=== PATIENT | male | born 1955 | race Two or more races ===

== ENCOUNTER 2021-01-26 19:31 | Inpatient (IN) | payer OTHER, MEDICARE ==
[~2021-01-26] VITALS: Ht 170.2 cm; Wt 52.2 kg
[2021-01-26] MEDS ORDERED: IPRATROPIUM BROM 0.5 MG/2.5ML INH SOL NEB ONE (20:45)
[2021-01-26] MEDS ORDERED: ALBUTEROL SULF 2.5 MG/0.5ML(0.5%) NEB SOLN NEB ONE (20:45)
[2021-01-26 21:26] LABS: Basophils # (auto) 0 10 ^3/uL (0-0.2); Basophils % (auto) 0.7 % (0.0-2.0); Eosinophils # (auto) 0 10 ^3/uL (0-0.8); Eosinophils % (auto) 0.2 % (0.0-7.0); Hematocrit 44.7 % (41.0-53.0); Hemoglobin 14.1 g/dL (13.5-17.5); Lymphocytes # (auto) 1.1 10 ^3/uL (0.4-5.4); Mean Corpuscular Hemoglobin 30.7 pg (28.0-32.0); Mean Corpuscular Hgb Conc. 31.6 g/dL (32.0-36.0); Mean Corpuscular Volume 97.2 fL (80.0-100.0); Monocytes # (auto) 0.4 10 ^3/uL (0-1.3); Monocytes % (auto) 6.9 % (0.0-12.0); Neutrophils # (auto) 3.7 10 ^3/uL (1.6-8.6); Neutrophils % (auto) 71.2 % (37.0-80.0); Nucleated Red Blood Cells % 0.1 %; Platelet Count (auto) 294 10^3/uL (140-450); Red Blood Cells 4.59 10^6/uL (4.5-5.90); White Blood Cell 5.1 10^3/uL (4.4-10.8)
[2021-01-26 21:28] LABS: Urine Bacteria NONE SEEN /hpf (None Seen); Urine Blood Negative /uL (Negative); Urine Specific Gravity 1.011 (1.001-1.035); Urine WBC <1 /hpf (0 - 3)
[2021-01-26] MEDS ORDERED: IBUPROFEN 800 MG TAB PO ONE (21:30)
[2021-01-26 21:34] LABS: Red Cell Distribution Width 23.1 % (11.8-14.3)
[2021-01-26 21:42] LABS: INR 0.89 (0.9-1.15); Partial Thromboplastin Time 24.7 sec (23.0-31.2)
[2021-01-26 21:43] LABS: Albumin 3.5 g/dL (3.4-5.0); Anion Gap 18 (5-15); Blood Urea Nitrogen 17 mg/dL (7-18); Calcium 8.5 mg/dL (8.5-10.1); Carbon Dioxide 13 mmol/L (21-32); Chloride 110 mmol/L (98-107); Glucose 137 mg/dL (74-106); Magnesium 2.5 mg/dL (1.6-2.6); Potassium 3.5 mmol/L (3.5-5.1); Sodium 141 mmol/L (136-145)
[2021-01-26 21:50] LABS: Alanine Aminotransferase 17 U/L (16-61); Alkaline Phosphatase 109 U/L (45-117); Aspartate Aminotransferase 39 U/L (15-37); BUN/Creatinine Ratio 16.7; Bilirubin, Total 0.3 mg/dL (0.2-1.0); GFR African American 95 mL/min; GFR Non-African American 78 mL/min; Total Protein 7.3 g/dL (6.4-8.2)
[2021-01-26] MEDS ORDERED: IOHEXOL 350 MG/ML 100ML IJ ONE (22:53)
[2021-01-27] VITALS (7 sets, daily range): BP systolic 111–159; BP diastolic 46–93
[2021-01-27] MEDS ORDERED: HEPARIN SODIUM (PORCINE) 5000 UNITS/ML 1ML VIAL IV ONE (00:30)
[2021-01-27] MEDS ORDERED: HEPARIN DRIP/D5W 100UNITS/ML 250 ML IV SCH (00:30)
[2021-01-27] MEDS ORDERED: IPRATROPIUM BROM 0.5 MG/2.5ML INH SOL NEB PRN (02:30)
[2021-01-27] MEDS ORDERED: ALBUTEROL SULF 2.5 MG/0.5ML(0.5%) NEB SOLN NEB PRN (02:30)
[2021-01-27] MEDS ORDERED: MORPHINE SULF INJ 2 MG/ML SYRINGE 1ML IV PRN (02:30)
[2021-01-27] MEDS ORDERED: ACETAMINOPHEN 325 MG TAB PO PRN (02:30)
[2021-01-27] MEDS ORDERED: NITROGLYCERIN 0.4 MG SL TAB SL PRN (02:30)
[2021-01-27] MEDS ORDERED: TEMAZEPAM 15 MG CAP PO ONE ×2 (03:00→21:15)
[2021-01-27 04:11] LABS: Basophils # (auto) 0 10 ^3/uL (0-0.2); Basophils % (auto) 0.9 % (0.0-2.0); Eosinophils # (auto) 0.1 10 ^3/uL (0-0.8); Eosinophils % (auto) 2.3 % (0.0-7.0); Hematocrit 34.9 % (41.0-53.0); Hemoglobin 11.5 g/dL (13.5-17.5); Lymphocytes # (auto) 1.2 10 ^3/uL (0.4-5.4); Lymphocytes % (auto) 29.4 % (10.0-50.0); Mean Corpuscular Hemoglobin 31.5 pg (28.0-32.0); Mean Corpuscular Hgb Conc. 32.9 g/dL (32.0-36.0); Mean Corpuscular Volume 95.8 fL (80.0-100.0); Monocytes # (auto) 0.5 10 ^3/uL (0-1.3); Monocytes % (auto) 12.2 % (0.0-12.0); Neutrophils # (auto) 2.3 10 ^3/uL (1.6-8.6); Neutrophils % (auto) 55.2 % (37.0-80.0); Nucleated Red Blood Cells % 0.1 %; Platelet Count (auto) 204 10^3/uL (140-450); Red Blood Cells 3.64 10^6/uL (4.5-5.90); White Blood Cell 4.2 10^3/uL (4.4-10.8)
[2021-01-27 04:25] LABS: Red Cell Distribution Width 22.2 % (11.8-14.3)
[2021-01-27 04:33] LABS: BUN/Creatinine Ratio 17.2; Potassium 3.9 mmol/L (3.5-5.1)
[2021-01-27 04:34] LABS: Calcium 7.8 mg/dL (8.5-10.1)
[2021-01-27 04:36] LABS: Bilirubin, Total 0.8 mg/dL (0.2-1.0); Total Protein 5.8 g/dL (6.4-8.2)
[2021-01-27 08:37] LABS: INR 1.15 (0.9-1.15)
[2021-01-27 08:39] LABS: Partial Thromboplastin Time > 139.0 sec (23.0-31.2)
[2021-01-27] MEDS: MORPHINE SULFATE 4 MG/ML SYR/VIAL IV PRN ×4 (09:29→22:02)
[2021-01-27] MEDS: ONDANSETRON HCL 4 MG/2 ML VIAL IV PRN ×3 (09:30→18:05)
[2021-01-27] MEDS: FAMOTIDINE (10MG/ML) 2ML VL IV SCH ×2 (09:30→22:01)
[2021-01-27] MEDS: HEPARIN DRIP/D5W 100UNITS/ML 250 ML IV SCH ×2 (10:04→17:29)
[2021-01-27 17:20] LABS: INR 1.02 (0.9-1.15)
[2021-01-27 17:23] LABS: Partial Thromboplastin Time 76.5 sec (23.0-31.2)
[2021-01-28 00:12] LABS: INR 1.01 (0.9-1.15); Partial Thromboplastin Time 51.6 sec (23.0-31.2)
[2021-01-28] MEDS: MORPHINE SULFATE 4 MG/ML SYR/VIAL IV PRN ×5 (02:29→22:49)
[2021-01-28 05:11] VITALS: BP 127/90
[2021-01-28] MEDS: HEPARIN DRIP/D5W 100UNITS/ML 250 ML IV SCH (05:55)
[2021-01-28 06:45] LABS: Basophils # (auto) 0 10 ^3/uL (0-0.2); Basophils % (auto) 1.2 % (0.0-2.0); Eosinophils # (auto) 0.3 10 ^3/uL (0-0.8); Eosinophils % (auto) 8.1 % (0.0-7.0); Hematocrit 33.4 % (41.0-53.0); Hemoglobin 11.3 g/dL (13.5-17.5); Lymphocytes # (auto) 1.4 10 ^3/uL (0.4-5.4); Lymphocytes % (auto) 35.2 % (10.0-50.0); Mean Corpuscular Hemoglobin 31.8 pg (28.0-32.0); Mean Corpuscular Hgb Conc. 33.9 g/dL (32.0-36.0); Mean Corpuscular Volume 93.9 fL (80.0-100.0); Monocytes # (auto) 0.4 10 ^3/uL (0-1.3); Monocytes % (auto) 11.3 % (0.0-12.0); Neutrophils # (auto) 1.7 10 ^3/uL (1.6-8.6); Neutrophils % (auto) 44.2 % (37.0-80.0); Nucleated Red Blood Cells % 0.2 %; Platelet Count (auto) 183 10^3/uL (140-450); Red Blood Cells 3.56 10^6/uL (4.5-5.90); Red Cell Distribution Width 22.1 % (11.8-14.3); White Blood Cell 3.9 10^3/uL (4.4-10.8)
[2021-01-28 06:56] LABS: INR 0.97 (0.9-1.15); Partial Thromboplastin Time 48.5 sec (23.0-31.2)
[2021-01-28 07:04] LABS: Potassium 3.5 mmol/L (3.5-5.1)
[2021-01-28 07:13] LABS: Albumin 2.6 g/dL (3.4-5.0); BUN/Creatinine Ratio 15.4; Bilirubin, Total 0.6 mg/dL (0.2-1.0); Calcium 7.7 mg/dL (8.5-10.1); Magnesium 2.1 mg/dL (1.6-2.6); Phosphorus 2.1 mg/dL (2.5-4.90); Total Protein 5.3 g/dL (6.4-8.2)
[2021-01-28 09:00] VITALS: BP 150/94
[2021-01-28] MEDS: FAMOTIDINE (10MG/ML) 2ML VL IV SCH ×2 (09:05→21:19)
[2021-01-28] MEDS ORDERED: SACU1TAB PO (09:21)
[2021-01-28] MEDS ORDERED: APIX2.5T PO (09:22)
[2021-01-28] MEDS ORDERED: ATOR-47 PO (09:25)
[2021-01-28] MEDS ORDERED: PANT40TA2 PO (09:26)
[2021-01-28] MEDS ORDERED: METO-289 PO (09:27)
[2021-01-28] MEDS ORDERED: FURO1TAB33 PO ×2 (09:28→09:47)
[2021-01-28] MEDS ORDERED: METO1TAB9 PO (09:39)
[2021-01-28] MEDS ORDERED: GABA300C10 PO (09:40)
[2021-01-28] MEDS ORDERED: SPIR25TA8 PO (09:40)
[2021-01-28] MEDS ORDERED: METH750T22 PO (09:42)
[2021-01-28] MEDS ORDERED: SACU1TAB7 PO (09:43)
[2021-01-28] MEDS ORDERED: HYDR50TA15 PO (09:48)
[2021-01-28] MEDS ORDERED: POTASSIUM PHOSPHATE 26.4 MEQ in SODIUM CHL 0.9% 100 ML IV ONE (12:15)
[2021-01-28 12:52] VITALS: BP 141/96
[2021-01-28] MEDS: POLYETHYLENE GLYCOL 17 GM PWDR PO PRN (13:55)
[2021-01-28 13:59] LABS: INR 0.99 (0.9-1.15); Partial Thromboplastin Time 60.7 sec (23.0-31.2)
[2021-01-28] MEDS: HYDROcodone-ACET 5/325MG TAB PO PRN ×2 (15:55→21:19)
[2021-01-28 17:00] VITALS: BP 152/96
[2021-01-28 20:41] LABS: INR 1.03 (0.9-1.15); Partial Thromboplastin Time 65.5 sec (23.0-31.2)
[2021-01-28 22:00] VITALS: BP 134/92
[2021-01-28] MEDS: TEMAZEPAM 15 MG CAP PO PRN (23:13)
[2021-01-29] MEDS: HYDROcodone-ACET 5/325MG TAB PO PRN ×3 (02:18→20:10)
[2021-01-29 02:41] LABS: INR 1.05 (0.9-1.15)
[2021-01-29] MEDS: MORPHINE SULFATE 4 MG/ML SYR/VIAL IV PRN ×5 (03:18→22:08)
[2021-01-29 05:00] VITALS: BP 139/75
[2021-01-29 06:07] LABS: Basophils # (auto) 0.1 10 ^3/uL (0-0.2); Basophils % (auto) 1.4 % (0.0-2.0); Eosinophils # (auto) 0.3 10 ^3/uL (0-0.8); Eosinophils % (auto) 8.6 % (0.0-7.0); Hematocrit 31.1 % (41.0-53.0); Hemoglobin 10.5 g/dL (13.5-17.5); Lymphocytes # (auto) 1.8 10 ^3/uL (0.4-5.4); Mean Corpuscular Hemoglobin 32.1 pg (28.0-32.0); Mean Corpuscular Hgb Conc. 33.7 g/dL (32.0-36.0); Mean Corpuscular Volume 95.2 fL (80.0-100.0); Monocytes # (auto) 0.6 10 ^3/uL (0-1.3); Monocytes % (auto) 14.4 % (0.0-12.0); Neutrophils # (auto) 1.2 10 ^3/uL (1.6-8.6); Neutrophils % (auto) 29.6 % (37.0-80.0); Nucleated Red Blood Cells % 0.2 %; Platelet Count (auto) 158 10^3/uL (140-450); Red Blood Cells 3.27 10^6/uL (4.5-5.90); Red Cell Distribution Width 21.6 % (11.8-14.3); White Blood Cell 3.9 10^3/uL (4.4-10.8)
[2021-01-29 06:34] LABS: Potassium 3.5 mmol/L (3.5-5.1)
[2021-01-29 06:43] LABS: BUN/Creatinine Ratio 11.1; Calcium 7.6 mg/dL (8.5-10.1)
[2021-01-29 08:00] VITALS: BP 120/81
[2021-01-29] MEDS: FAMOTIDINE (10MG/ML) 2ML VL IV SCH ×2 (08:00→21:16)
[2021-01-29 09:21] LABS: INR 1.05 (0.9-1.15)
[2021-01-29] MEDS ORDERED: IOHEXOL 300 MG/ML 100ML BOTTLE IJ ONE (09:29)
[2021-01-29] MEDS: POLYETHYLENE GLYCOL 17 GM PWDR PO PRN (12:26)
[2021-01-29 13:00] VITALS: BP 139/73
[2021-01-29] MEDS: HEPARIN DRIP/D5W 100UNITS/ML 250 ML IV SCH ×2 (13:42→16:01)
[2021-01-29 14:54] LABS: Partial Thromboplastin Time 31.9 sec (23.0-31.2)
[2021-01-29] MEDS ORDERED: HEPARIN 1,000 UNITS/ml 1ML VIAL ONE (15:27)
[2021-01-29] MEDS ORDERED: HEPARIN SODIUM (PORCINE) 5000 UNITS/ML 1ML VIAL IV ONE (15:30)
[2021-01-29 16:42] VITALS: BP 154/81
[2021-01-29] MEDS: ONDANSETRON HCL 4 MG/2 ML VIAL IV PRN (18:07)
[2021-01-29 20:39] VITALS: BP 154/89
[2021-01-29 22:00] VITALS: BP 133/89
[2021-01-29] MEDS ORDERED: ATORVASTATIN 20 MG TAB PO SCH (22:00)
[2021-01-29] MEDS ORDERED: ENTRESTO PO SCH (22:00)
[2021-01-29] MEDS: TEMAZEPAM 15 MG CAP PO PRN (22:08)
[2021-01-29 22:45] LABS: INR 1.05 (0.9-1.15)
[2021-01-29 22:47] LABS: Partial Thromboplastin Time > 139.0 sec (23.0-31.2)
[2021-01-30] MEDS: HYDROcodone-ACET 5/325MG TAB PO PRN ×2 (01:37→13:12)
[2021-01-30] MEDS: MORPHINE SULFATE 4 MG/ML SYR/VIAL IV PRN ×2 (03:40→08:31)
[2021-01-30 05:00] VITALS: BP 138/85
[2021-01-30 06:01] LABS: Basophils # (auto) 0.1 10 ^3/uL (0-0.2); Basophils % (auto) 1.7 % (0.0-2.0); Eosinophils # (auto) 0.3 10 ^3/uL (0-0.8); Eosinophils % (auto) 7.9 % (0.0-7.0); Hemoglobin 10.6 g/dL (13.5-17.5); Lymphocytes # (auto) 1.7 10 ^3/uL (0.4-5.4); Lymphocytes % (auto) 46.1 % (10.0-50.0); Mean Corpuscular Hemoglobin 32.5 pg (28.0-32.0); Mean Corpuscular Hgb Conc. 34.2 g/dL (32.0-36.0); Monocytes # (auto) 0.5 10 ^3/uL (0-1.3); Monocytes % (auto) 13.3 % (0.0-12.0); Neutrophils # (auto) 1.2 10 ^3/uL (1.6-8.6); Nucleated Red Blood Cells % 0.2 %; Platelet Count (auto) 160 10^3/uL (140-450); Red Blood Cells 3.27 10^6/uL (4.5-5.90); White Blood Cell 3.7 10^3/uL (4.4-10.8)
[2021-01-30 06:07] LABS: INR 1.02 (0.9-1.15); Partial Thromboplastin Time 61.5 sec (23.0-31.2)
[2021-01-30 06:10] LABS: Red Cell Distribution Width 21.4 % (11.8-14.3)
[2021-01-30 06:11] LABS: Potassium 3.8 mmol/L (3.5-5.1)
[2021-01-30 06:16] LABS: BUN/Creatinine Ratio 9.8; Calcium 7.8 mg/dL (8.5-10.1)
[2021-01-30] MEDS ORDERED: FUROSEMIDE 20 MG/2 ML VIAL IV ONE (07:00)
[2021-01-30 08:50] VITALS: BP 147/87
[2021-01-30] MEDS ORDERED: METOPROLOL SUCCINATE XL 50 MG TAB PO SCH (10:00)
[2021-01-30] MEDS ORDERED: SPIRONOLACTONE 25 MG TAB PO SCH (10:00)
[2021-01-30] MEDS: FAMOTIDINE (10MG/ML) 2ML VL IV SCH (10:03)
[2021-01-30] MEDS ORDERED: ENTRESTO PO SCH (10:08)
[2021-01-30 12:30] VITALS: BP 127/86
[2021-01-30 12:37] LABS: INR 1.01 (0.9-1.15); Partial Thromboplastin Time 48.1 sec (23.0-31.2)
[2021-01-30] MEDS: POLYETHYLENE GLYCOL 17 GM PWDR PO PRN (13:11)
[2021-01-30] MEDS: HEPARIN DRIP/D5W 100UNITS/ML 250 ML IV SCH (13:52)
[2021-01-30 16:07] VITALS: BP 127/86
[2021-01-30 17:00] VITALS: BP 125/85
== END 2021-01-30 17:45 | disposition home or self-care (01) | DRG 176 ==
LOC: EDBD 19:31 → ER 19:31 → TELE-WESTW 01-27 02:31 → ER 01-27 04:33
PROVIDERS: ADMIT Nurse Practitioner Family; ATTEND Internal Medicine
DX: I26.94 Multiple subsegmental thrombotic pulmonary emboli without acute cor pulmonale (principal); I77.4 Celiac artery compression syndrome; C25.9 Malignant neoplasm of pancreas, unspecified; D68.69 Other thrombophilia; I50.42 Chronic combined systolic (congestive) and diastolic (congestive) heart failure; Z20.822 Contact with and (suspected) exposure to COVID-19; G47.00 Insomnia, unspecified; I27.20 Pulmonary hypertension, unspecified; J43.9 Emphysema, unspecified; F17.210 Nicotine dependence, cigarettes, uncomplicated; N28.1 Cyst of kidney, acquired; I77.1 Stricture of artery; K76.0 Fatty (change of) liver, not elsewhere classified; Z79.899 Other long term (current) drug therapy; Z85.46 Personal history of malignant neoplasm of prostate; Z79.01 Long term (current) use of anticoagulants; Z90.79 Acquired absence of other genital organ(s)
CPT/HCPCS: 36415; 36600; 71275; 74177; 76700; 78306; 80048; 80053; 81001; 82805; 83036; 83735; 83880; 84100; 84154; 84443; 84484; 85025; 85379; 85610; 85730; 86301; 87426; 93005; 93306; 93970; 94640; 96365; 96375; 99291; G0378; J2405; J3490

== ENCOUNTER 2021-01-31 19:52 | Inpatient (IN) | payer OTHER, MEDICARE ==
[~2021-01-31] VITALS: Ht 172.7 cm; Wt 51.7 kg
[~2021-01-31 19:52] MED LIST: APIX2.5T PO; ATOR-47 PO; FURO1TAB33 PO; GABA300C10 PO; HYDR50TA15 PO; METH750T22 PO; METO1TAB9 PO; PANT40TA2 PO; SACU1TAB7 PO; SPIR25TA8 PO
[2021-01-31 20:28] LABS: Basophils # (auto) 0 10 ^3/uL (0-0.2); Basophils % (auto) 0.8 % (0.0-2.0); Eosinophils # (auto) 0.2 10 ^3/uL (0-0.8); Eosinophils % (auto) 3.8 % (0.0-7.0); Hematocrit 37.7 % (41.0-53.0); Hemoglobin 12.4 g/dL (13.5-17.5); Lymphocytes # (auto) 1.7 10 ^3/uL (0.4-5.4); Lymphocytes % (auto) 34.4 % (10.0-50.0); Mean Corpuscular Hemoglobin 31.5 pg (28.0-32.0); Mean Corpuscular Hgb Conc. 32.9 g/dL (32.0-36.0); Mean Corpuscular Volume 95.9 fL (80.0-100.0); Monocytes # (auto) 0.6 10 ^3/uL (0-1.3); Monocytes % (auto) 12.8 % (0.0-12.0); Neutrophils # (auto) 2.4 10 ^3/uL (1.6-8.6); Neutrophils % (auto) 48.2 % (37.0-80.0); Platelet Count (auto) 200 10^3/uL (140-450); Red Blood Cells 3.93 10^6/uL (4.5-5.90); White Blood Cell 5.1 10^3/uL (4.4-10.8)
[2021-01-31 20:31] LABS: Red Cell Distribution Width 21.5 % (11.8-14.3)
[2021-01-31 20:45] LABS: INR 1.02 (0.9-1.15); Partial Thromboplastin Time 27.1 sec (23.0-31.2)
[2021-01-31 21:02] LABS: Albumin 2.9 g/dL (3.4-5.0); Anion Gap 7 (5-15); Blood Urea Nitrogen 19 mg/dL (7-18); Carbon Dioxide 22 mmol/L (21-32); Chloride 111 mmol/L (98-107); GFR African American 85 mL/min; GFR Non-African American 70 mL/min; Glucose 65 mg/dL (74-106); Potassium 3.6 mmol/L (3.5-5.1); Sodium 140 mmol/L (136-145)
[2021-01-31 21:09] LABS: Alanine Aminotransferase 17 U/L (16-61); Alkaline Phosphatase 87 U/L (45-117); Aspartate Aminotransferase 22 U/L (15-37); Bilirubin, Total 0.2 mg/dL (0.2-1.0); Total Protein 6.4 g/dL (6.4-8.2)
[2021-02-01] MEDS ORDERED: MORPHINE SULF INJ 2 MG/ML SYRINGE 1ML IV PRN (04:00)
[2021-02-01] MEDS ORDERED: ACETAMINOPHEN 325 MG TAB PO PRN (04:00)
[2021-02-01] MEDS ORDERED: NITROGLYCERIN 0.4 MG SL TAB SL PRN (04:00)
[2021-02-01] MEDS ORDERED: DOCUSATE SOD 100 MG CAP PO PRN (04:00)
[2021-02-01] MEDS: SODIUM CHLOR 0.9% PF (SALINE LOCK) 10ML VIAL/SYR IV SCH ×3 (06:06→22:08)
[2021-02-01] MEDS: HYDROcodone-ACET 5/325MG TAB PO PRN ×2 (06:06→20:38)
[2021-02-01 06:13] VITALS: BP 128/81
[2021-02-01 07:30] LABS: Basophils # (auto) 0 10 ^3/uL (0-0.2); Basophils % (auto) 0.9 % (0.0-2.0); Eosinophils # (auto) 0.2 10 ^3/uL (0-0.8); Eosinophils % (auto) 5.4 % (0.0-7.0); Hematocrit 34.7 % (41.0-53.0); Hemoglobin 11.1 g/dL (13.5-17.5); Lymphocytes # (auto) 1.3 10 ^3/uL (0.4-5.4); Lymphocytes % (auto) 33.5 % (10.0-50.0); Mean Corpuscular Hemoglobin 30.9 pg (28.0-32.0); Mean Corpuscular Hgb Conc. 32.1 g/dL (32.0-36.0); Mean Corpuscular Volume 96.1 fL (80.0-100.0); Monocytes # (auto) 0.4 10 ^3/uL (0-1.3); Monocytes % (auto) 10.4 % (0.0-12.0); Neutrophils # (auto) 1.9 10 ^3/uL (1.6-8.6); Neutrophils % (auto) 49.8 % (37.0-80.0); Platelet Count (auto) 189 10^3/uL (140-450); Red Blood Cells 3.61 10^6/uL (4.5-5.90); White Blood Cell 3.9 10^3/uL (4.4-10.8)
[2021-02-01 07:31] LABS: Potassium 3.9 mmol/L (3.5-5.1)
[2021-02-01 07:32] LABS: Albumin 2.8 g/dL (3.4-5.0); Red Cell Distribution Width 21.4 % (11.8-14.3)
[2021-02-01 07:34] LABS: BUN/Creatinine Ratio 18.4
[2021-02-01 07:37] LABS: Bilirubin, Total 0.3 mg/dL (0.2-1.0)
[2021-02-01 09:00] VITALS: BP 126/85
[2021-02-01] MEDS ORDERED: APIXABAN 5 MG TAB PO ONE (09:45)
[2021-02-01] MEDS: ZINC SULFATE 220mg CAP or TAB PO SCH (10:29)
[2021-02-01] MEDS: SACUBITRIL-VALSARTAN 24mg/26mg TAB PO SCH ×2 (10:31→22:07)
[2021-02-01] MEDS: MULTIPLE VITAMIN TAB PO SCH (10:31)
[2021-02-01] MEDS: ASCORBIC ACID 500 MG TAB PO SCH ×2 (10:31→22:08)
[2021-02-01] MEDS: FAMOTIDINE (10MG/ML) 2ML VL IV SCH ×2 (10:32→22:08)
[2021-02-01] MEDS: MORPHINE SULF INJ 2 MG/ML SYRINGE 1ML IV PRN ×2 (10:34→17:17)
[2021-02-01 13:00] VITALS: BP 144/93
[2021-02-01] MEDS ORDERED: IOHEXOL 300 MG/ML 100ML BOTTLE IJ ONE (13:27)
[2021-02-01 17:00] VITALS: BP 150/63
[2021-02-01 20:00] VITALS: BP 143/94
[2021-02-01 22:00] VITALS: BP 143/94
[2021-02-01] MEDS: APIXABAN 5 MG TAB PO SCH (22:09)
[2021-02-02] MEDS: MORPHINE SULF INJ 2 MG/ML SYRINGE 1ML IV PRN ×4 (00:05→21:38)
[2021-02-02 05:00] VITALS: BP 122/81
[2021-02-02] MEDS: HYDROcodone-ACET 5/325MG TAB PO PRN ×2 (05:05→10:56)
[2021-02-02 05:32] LABS: Basophils # (auto) 0 10 ^3/uL (0-0.2); Basophils % (auto) 1.1 % (0.0-2.0); Eosinophils # (auto) 0.2 10 ^3/uL (0-0.8); Eosinophils % (auto) 4.4 % (0.0-7.0); Hematocrit 32.7 % (41.0-53.0); Hemoglobin 10.7 g/dL (13.5-17.5); Lymphocytes # (auto) 1.5 10 ^3/uL (0.4-5.4); Lymphocytes % (auto) 33.4 % (10.0-50.0); Mean Corpuscular Hemoglobin 31.3 pg (28.0-32.0); Mean Corpuscular Hgb Conc. 32.7 g/dL (32.0-36.0); Mean Corpuscular Volume 95.6 fL (80.0-100.0); Monocytes # (auto) 0.5 10 ^3/uL (0-1.3); Monocytes % (auto) 11.3 % (0.0-12.0); Neutrophils # (auto) 2.3 10 ^3/uL (1.6-8.6); Neutrophils % (auto) 49.8 % (37.0-80.0); Platelet Count (auto) 199 10^3/uL (140-450); Red Blood Cells 3.42 10^6/uL (4.5-5.90); White Blood Cell 4.6 10^3/uL (4.4-10.8)
[2021-02-02 05:33] LABS: Red Cell Distribution Width 20.9 % (11.8-14.3)
[2021-02-02 06:01] LABS: Potassium 3.4 mmol/L (3.5-5.1)
[2021-02-02] MEDS: SODIUM CHLOR 0.9% PF (SALINE LOCK) 10ML VIAL/SYR IV SCH ×3 (06:07→22:18)
[2021-02-02 06:14] LABS: Albumin 2.7 g/dL (3.4-5.0); BUN/Creatinine Ratio 22.5; Bilirubin, Total 0.3 mg/dL (0.2-1.0); Calcium 8.1 mg/dL (8.5-10.1); Total Protein 5.7 g/dL (6.4-8.2)
[2021-02-02 09:00] VITALS: BP 123/91
[2021-02-02] MEDS: MULTIPLE VITAMIN TAB PO SCH (10:21)
[2021-02-02] MEDS: ZINC SULFATE 220mg CAP or TAB PO SCH (10:22)
[2021-02-02] MEDS: ASCORBIC ACID 500 MG TAB PO SCH ×2 (10:22→22:19)
[2021-02-02] MEDS: FAMOTIDINE (10MG/ML) 2ML VL IV SCH ×2 (10:22→22:18)
[2021-02-02] MEDS: SACUBITRIL-VALSARTAN 24mg/26mg TAB PO SCH ×2 (10:22→22:18)
[2021-02-02] MEDS: APIXABAN 5 MG TAB PO SCH ×2 (10:22→22:18)
[2021-02-02 13:00] VITALS: BP 121/82
[2021-02-02] MEDS: ONDANSETRON HCL 4 MG/2 ML VIAL IV PRN ×2 (14:34→22:27)
[2021-02-02] MEDS ORDERED: POTASSIUM EFFERVESENT TAB 25 MEQ GT ONE (15:15)
[2021-02-02 17:00] VITALS: BP 138/94
[2021-02-02 22:00] VITALS: BP 135/92
[2021-02-03] MEDS ORDERED: TEMAZEPAM 15 MG CAP PO ONE (00:15)
[2021-02-03 05:00] VITALS: BP 106/65
[2021-02-03] MEDS: SODIUM CHLOR 0.9% PF (SALINE LOCK) 10ML VIAL/SYR IV SCH ×3 (05:52→22:17)
[2021-02-03 07:09] LABS: Basophils # (auto) 0.1 10 ^3/uL (0-0.2); Basophils % (auto) 1.2 % (0.0-2.0); Eosinophils # (auto) 0.3 10 ^3/uL (0-0.8); Eosinophils % (auto) 5.9 % (0.0-7.0); Hematocrit 33.2 % (41.0-53.0); Hemoglobin 10.7 g/dL (13.5-17.5); Lymphocytes # (auto) 1.5 10 ^3/uL (0.4-5.4); Lymphocytes % (auto) 35.2 % (10.0-50.0); Mean Corpuscular Hemoglobin 30.9 pg (28.0-32.0); Mean Corpuscular Hgb Conc. 32.2 g/dL (32.0-36.0); Mean Corpuscular Volume 96.1 fL (80.0-100.0); Monocytes # (auto) 0.4 10 ^3/uL (0-1.3); Monocytes % (auto) 10.4 % (0.0-12.0); Neutrophils % (auto) 47.3 % (37.0-80.0); Nucleated Red Blood Cells % 0.2 %; Platelet Count (auto) 225 10^3/uL (140-450); Red Blood Cells 3.46 10^6/uL (4.5-5.90); Red Cell Distribution Width 20.8 % (11.8-14.3); White Blood Cell 4.3 10^3/uL (4.4-10.8)
[2021-02-03 07:21] LABS: Potassium 4.4 mmol/L (3.5-5.1)
[2021-02-03 07:26] LABS: Calcium 8.5 mg/dL (8.5-10.1)
[2021-02-03 09:00] VITALS: BP 123/83
[2021-02-03] MEDS: ONDANSETRON HCL 4 MG/2 ML VIAL IV PRN ×2 (09:12→15:51)
[2021-02-03] MEDS: MORPHINE SULF INJ 2 MG/ML SYRINGE 1ML IV PRN ×3 (09:12→23:14)
[2021-02-03] MEDS: SACUBITRIL-VALSARTAN 24mg/26mg TAB PO SCH ×2 (09:13→22:17)
[2021-02-03] MEDS: ZINC SULFATE 220mg CAP or TAB PO SCH (09:13)
[2021-02-03] MEDS: APIXABAN 5 MG TAB PO SCH ×2 (09:13→22:17)
[2021-02-03] MEDS: ASCORBIC ACID 500 MG TAB PO SCH ×2 (09:13→22:17)
[2021-02-03] MEDS: FAMOTIDINE (10MG/ML) 2ML VL IV SCH ×2 (09:13→22:16)
[2021-02-03] MEDS: MULTIPLE VITAMIN TAB PO SCH (09:13)
[2021-02-03] MEDS ORDERED: TEMAZEPAM 15 MG CAP PO PRN (12:30)
[2021-02-03] MEDS: HYDROcodone-ACET 5/325MG TAB PO PRN ×2 (12:45→20:00)
[2021-02-03 13:00] VITALS: BP 136/91
[2021-02-03 16:45] VITALS: BP 123/85
[2021-02-03 22:00] VITALS: BP 130/88
[2021-02-04] MEDS: ONDANSETRON HCL 4 MG/2 ML VIAL IV PRN ×3 (01:19→13:30)
[2021-02-04 05:00] VITALS: BP 109/82
[2021-02-04] MEDS: SODIUM CHLOR 0.9% PF (SALINE LOCK) 10ML VIAL/SYR IV SCH ×2 (05:45→09:46)
[2021-02-04] MEDS: MORPHINE SULF INJ 2 MG/ML SYRINGE 1ML IV PRN ×2 (06:19→13:29)
[2021-02-04 07:42] LABS: Basophils # (auto) 0 10 ^3/uL (0-0.2); Basophils % (auto) 0.2 % (0.0-2.0); Eosinophils # (auto) 0.3 10 ^3/uL (0-0.8); Eosinophils % (auto) 6.3 % (0.0-7.0); Hemoglobin 11.8 g/dL (13.5-17.5); Lymphocytes # (auto) 1.8 10 ^3/uL (0.4-5.4); Lymphocytes % (auto) 36.4 % (10.0-50.0); Mean Corpuscular Hemoglobin 31.6 pg (28.0-32.0); Mean Corpuscular Hgb Conc. 32.7 g/dL (32.0-36.0); Mean Corpuscular Volume 96.5 fL (80.0-100.0); Monocytes # (auto) 0.5 10 ^3/uL (0-1.3); Monocytes % (auto) 9.8 % (0.0-12.0); Neutrophils # (auto) 2.3 10 ^3/uL (1.6-8.6); Neutrophils % (auto) 47.3 % (37.0-80.0); Nucleated Red Blood Cells % 0.1 %; Platelet Count (auto) 283 10^3/uL (140-450); Red Blood Cells 3.73 10^6/uL (4.5-5.90); Red Cell Distribution Width 20.8 % (11.8-14.3); White Blood Cell 4.8 10^3/uL (4.4-10.8)
[2021-02-04 07:59] LABS: Calcium 8.8 mg/dL (8.5-10.1); Potassium 4.8 mmol/L (3.5-5.1)
[2021-02-04 09:00] VITALS: BP 132/83
[2021-02-04] MEDS: ASCORBIC ACID 500 MG TAB PO SCH (09:45)
[2021-02-04] MEDS: MULTIPLE VITAMIN TAB PO SCH (09:45)
[2021-02-04] MEDS: ZINC SULFATE 220mg CAP or TAB PO SCH (09:45)
[2021-02-04] MEDS: FAMOTIDINE (10MG/ML) 2ML VL IV SCH (09:45)
[2021-02-04] MEDS: APIXABAN 5 MG TAB PO SCH (09:46)
[2021-02-04] MEDS: SACUBITRIL-VALSARTAN 24mg/26mg TAB PO SCH (09:46)
[2021-02-04] MEDS: HYDROcodone-ACET 5/325MG TAB PO PRN (09:51)
[2021-02-04 13:00] VITALS: BP 134/86
[2021-02-06] MEDS ORDERED: APIXABAN 5 MG TAB PO SCH (10:00)
== END 2021-02-04 14:37 | disposition home or self-care (01) | DRG 176 ==
LOC: ER 19:52 → TELE-WESTW 02-01 03:51
PROVIDERS: ADMIT Nurse Practitioner Family; ATTEND Internal Medicine
DX: I26.99 Other pulmonary embolism without acute cor pulmonale (principal); R04.2 Hemoptysis; I50.42 Chronic combined systolic (congestive) and diastolic (congestive) heart failure; I77.4 Celiac artery compression syndrome; E44.1 Mild protein-calorie malnutrition; D68.59 Other primary thrombophilia; Z20.822 Contact with and (suspected) exposure to COVID-19; I27.20 Pulmonary hypertension, unspecified; J43.9 Emphysema, unspecified; F17.210 Nicotine dependence, cigarettes, uncomplicated; Z79.01 Long term (current) use of anticoagulants; Z85.46 Personal history of malignant neoplasm of prostate; Z86.711 Personal history of pulmonary embolism; Z79.899 Other long term (current) drug therapy
CPT/HCPCS: 36415; 36600; 71045; 71260; 80048; 80053; 82805; 83735; 83880; 84484; 85025; 85379; 85610; 85730; 87081; 87426; 93005; G0378; J2405; J3490

== ENCOUNTER 2021-10-24 08:46 | Inpatient (IN) | payer MEDICARE ==
[~2021-10-24] VITALS: Ht 172.7 cm; Wt 67.9 kg
[2021-10-24] MEDS ORDERED: IOHEXOL 350 MG/ML 100ML IJ ONE (10:11)
[2021-10-24 10:12] LABS: Basophils # (auto) 0.1 10 ^3/uL (0-0.2); Basophils % (auto) 1.9 % (0.0-2.0); Hematocrit 50.7 % (41.0-53.0); Hemoglobin 16.8 g/dL (13.5-17.5); Lymphocytes % (auto) 26.1 % (10.0-50.0); Mean Corpuscular Hemoglobin 31.7 pg (28.0-32.0); Mean Corpuscular Hgb Conc. 33.2 g/dL (32.0-36.0); Mean Corpuscular Volume 95.4 fL (80.0-100.0); Nucleated Red Blood Cells % 0.3 %; Red Blood Cells 5.32 10^6/uL (4.5-5.90); Red Cell Distribution Width 15.5 % (11.8-14.3); White Blood Cell 3.9 10^3/uL (4.4-10.8)
[2021-10-24 10:13] LABS: Eosinophils % (auto) 14.5 % (0.0-7.0); Neutrophils % (auto) 47.9 % (37.0-80.0)
[2021-10-24 10:14] LABS: Eosinophils # (auto) 0.5 10 ^3/uL (0-0.8); Monocytes # (auto) 0.4 10 ^3/uL (0-1.3); Monocytes % (auto) 9.6 % (0.0-12.0); Neutrophils # (auto) 1.9 10 ^3/uL (1.6-8.6)
[2021-10-24 10:47] LABS: INR 1.24 (0.9-1.15)
[2021-10-24 11:10] LABS: Albumin 3.8 g/dL (3.4-5.0); BUN/Creatinine Ratio 12.3; Calcium 9.2 mg/dL (8.5-10.1); Potassium 4.4 mmol/L (3.5-5.1)
[2021-10-24 11:35] LABS: Bilirubin, Total 0.7 mg/dL (0.2-1.0); Total Protein 7.9 g/dL (6.4-8.2)
[2021-10-24] MEDS ORDERED: OXYCODONE W/ ACETAMINOPHEN 5/325MG TABLET PO ONE (12:45)
[2021-10-24] MEDS ORDERED: ACETAMINOPHEN 325 MG TAB PO PRN (14:30)
[2021-10-24] MEDS ORDERED: hydrALAZINE HCL 20 MG/ML VL IV PRN (14:30)
[2021-10-24] MEDS ORDERED: MORPHINE SULFATE INJECTION 2 MG/ML SYRG IV PRN (15:45)
[2021-10-24] MEDS ORDERED: NITROGLYCERIN 0.4 MG SL TAB SL PRN (15:45)
[2021-10-24 19:40] VITALS: BP 142/107
[2021-10-24] MEDS: HYDROcodone-ACET 5/325MG TAB PO PRN (19:45)
[2021-10-24] MEDS: CARVEDILOL 12.5 MG TAB PO SCH (21:12)
[2021-10-24] MEDS: APIXABAN 2.5 MG TAB PO SCH (21:12)
[2021-10-24] MEDS: SODIUM CHLOR 0.9% PF (SALINE LOCK) 10ML VIAL/SYR IV SCH (21:12)
[2021-10-24] MEDS: ATORVASTATIN 20 MG TAB PO SCH (21:13)
[2021-10-24 22:00] VITALS: BP 153/92
[2021-10-24] MEDS ORDERED: traMADol HCL 50 MG TAB PO ONE (23:30)
[2021-10-25 00:14] VITALS: BP 153/92
[2021-10-25] MEDS: ALBUTEROL SULF 2.5 MG/0.5ML(0.5%) NEB SOLN NEB PRN ×2 (00:41→06:05)
[2021-10-25] MEDS ORDERED: methylPREDNISolone SOD SUCC 125 MG/2 ML VL IV ONE (00:45)
[2021-10-25 05:00] VITALS: BP 111/85
[2021-10-25] MEDS: methylPREDNISolone SOD SUCC 125 MG/2 ML VL IV SCH ×3 (05:54→22:12)
[2021-10-25] MEDS: SODIUM CHLOR 0.9% PF (SALINE LOCK) 10ML VIAL/SYR IV SCH ×3 (05:54→22:15)
[2021-10-25] MEDS: HYDROcodone-ACET 5/325MG TAB PO PRN ×4 (05:55→23:06)
[2021-10-25 06:43] LABS: Basophils # (auto) 0 10 ^3/uL (0-0.2); Basophils % (auto) 0.6 % (0.0-2.0); Eosinophils # (auto) 0.2 10 ^3/uL (0-0.8); Eosinophils % (auto) 5.4 % (0.0-7.0); Hematocrit 44.3 % (41.0-53.0); Hemoglobin 14.7 g/dL (13.5-17.5); Lymphocytes # (auto) 0.5 10 ^3/uL (0.4-5.4); Lymphocytes % (auto) 14.8 % (10.0-50.0); Mean Corpuscular Hemoglobin 31.3 pg (28.0-32.0); Mean Corpuscular Hgb Conc. 33.2 g/dL (32.0-36.0); Mean Corpuscular Volume 94.5 fL (80.0-100.0); Monocytes # (auto) 0.1 10 ^3/uL (0-1.3); Monocytes % (auto) 2.9 % (0.0-12.0); Neutrophils # (auto) 2.3 10 ^3/uL (1.6-8.6); Neutrophils % (auto) 76.3 % (37.0-80.0); Nucleated Red Blood Cells % 0.2 %; Red Blood Cells 4.68 10^6/uL (4.5-5.90); Red Cell Distribution Width 15.3 % (11.8-14.3); White Blood Cell 3.1 10^3/uL (4.4-10.8)
[2021-10-25 07:05] LABS: Albumin 3.1 g/dL (3.4-5.0); Calcium 8.8 mg/dL (8.5-10.1); Potassium 4.8 mmol/L (3.5-5.1)
[2021-10-25 07:26] LABS: Bilirubin, Total 0.5 mg/dL (0.2-1.0); Total Protein 6.4 g/dL (6.4-8.2)
[2021-10-25 08:00] VITALS: BP 110/81
[2021-10-25] MEDS: FUROSEMIDE 20 MG/2 ML VIAL IV SCH (09:58)
[2021-10-25] MEDS: APIXABAN 2.5 MG TAB PO SCH ×2 (09:59→22:14)
[2021-10-25] MEDS: FAMOTIDINE (10MG/ML) 2ML VL IV SCH (09:59)
[2021-10-25] MEDS ORDERED: ENOXAPARIN SOD 40 MG/0.4 ML SYRINGE SC SCH (10:00)
[2021-10-25] MEDS: CARVEDILOL 12.5 MG TAB PO SCH ×2 (10:09→22:13)
[2021-10-25 12:00] VITALS: BP 128/89
[2021-10-25] MEDS: ONDANSETRON HCL 4 MG/2 ML VIAL IV PRN ×2 (14:15→22:14)
[2021-10-25 16:00] VITALS: BP 113/71
[2021-10-25] MEDS: ATORVASTATIN 20 MG TAB PO SCH (22:14)
[2021-10-25] MEDS: guaiFENesin 200 MG/10 ML UD PO PRN (22:14)
[2021-10-25 22:42] VITALS: BP 115/71
[2021-10-26 05:11] VITALS: BP 116/80
[2021-10-26] MEDS: HYDROcodone-ACET 5/325MG TAB PO PRN ×3 (06:02→21:07)
[2021-10-26] MEDS: ONDANSETRON HCL 4 MG/2 ML VIAL IV PRN ×3 (06:02→21:06)
[2021-10-26] MEDS: methylPREDNISolone SOD SUCC 125 MG/2 ML VL IV SCH (06:02)
[2021-10-26] MEDS: SODIUM CHLOR 0.9% PF (SALINE LOCK) 10ML VIAL/SYR IV SCH ×3 (06:03→22:03)
[2021-10-26] MEDS: DOCUSATE SOD 100 MG CAP PO PRN (06:13)
[2021-10-26 08:00] VITALS: BP 119/76
[2021-10-26] MEDS: FAMOTIDINE (10MG/ML) 2ML VL IV SCH (09:42)
[2021-10-26] MEDS: FUROSEMIDE 20 MG/2 ML VIAL IV SCH (09:42)
[2021-10-26] MEDS: APIXABAN 2.5 MG TAB PO SCH ×2 (09:43→22:02)
[2021-10-26] MEDS: CARVEDILOL 12.5 MG TAB PO SCH ×2 (09:43→22:02)
[2021-10-26 12:00] VITALS: BP 124/86
[2021-10-26] MEDS: guaiFENesin 200 MG/10 ML UD PO PRN ×2 (14:51→22:03)
[2021-10-26 16:00] VITALS: BP 121/86
[2021-10-26] MEDS ORDERED: NICOTINE 21MG/24 HR TOPICAL PATCH TD ONE (16:00)
[2021-10-26] MEDS ORDERED: MORPHINE SULFATE INJECTION 2 MG/ML SYRG IV PRN (16:00)
[2021-10-26] MEDS: ALBUTEROL SULF 2.5 MG/0.5ML(0.5%) NEB SOLN NEB PRN (19:10)
[2021-10-26 21:50] VITALS: BP 115/72
[2021-10-26] MEDS: ATORVASTATIN 20 MG TAB PO SCH (22:02)
[2021-10-26] MEDS: SACUBITRIL-VALSARTAN 24mg/26mg TAB PO SCH (22:02)
[2021-10-27] MEDS: ALBUTEROL SULF 2.5 MG/0.5ML(0.5%) NEB SOLN NEB PRN ×2 (02:42→06:29)
[2021-10-27] MEDS: ALBUTEROL SULF 2.5 MG/0.5ML(0.5%) NEB SOLN NEB SCH ×5 (04:25→21:55)
[2021-10-27 05:17] VITALS: BP 107/73
[2021-10-27] MEDS: SODIUM CHLOR 0.9% PF (SALINE LOCK) 10ML VIAL/SYR IV SCH ×3 (06:00→21:41)
[2021-10-27 06:22] LABS: Basophils # (auto) 0.1 10 ^3/uL (0-0.2); Basophils % (auto) 1.8 % (0.0-2.0); Eosinophils # (auto) 0 10 ^3/uL (0-0.8); Eosinophils % (auto) 0.6 % (0.0-7.0); Hematocrit 39.2 % (41.0-53.0); Hemoglobin 13.1 g/dL (13.5-17.5); Lymphocytes # (auto) 1.5 10 ^3/uL (0.4-5.4); Lymphocytes % (auto) 21.1 % (10.0-50.0); Mean Corpuscular Hemoglobin 31.6 pg (28.0-32.0); Mean Corpuscular Hgb Conc. 33.4 g/dL (32.0-36.0); Mean Corpuscular Volume 94.6 fL (80.0-100.0); Monocytes # (auto) 0.3 10 ^3/uL (0-1.3); Monocytes % (auto) 4.9 % (0.0-12.0); Neutrophils % (auto) 71.6 % (37.0-80.0); Nucleated Red Blood Cells % 0.1 %; Red Blood Cells 4.14 10^6/uL (4.5-5.90); Red Cell Distribution Width 14.9 % (11.8-14.3)
[2021-10-27 06:33] LABS: Calcium 7.2 mg/dL (8.5-10.1); Magnesium 1.8 mg/dL (1.6-2.6); Potassium 3.7 mmol/L (3.5-5.1)
[2021-10-27 06:36] LABS: BUN/Creatinine Ratio 22.8
[2021-10-27 08:00] VITALS: BP 113/76
[2021-10-27] MEDS: guaiFENesin 200 MG/10 ML UD PO PRN (09:34)
[2021-10-27] MEDS: ONDANSETRON HCL 4 MG/2 ML VIAL IV PRN ×2 (09:35→21:44)
[2021-10-27] MEDS: HYDROcodone-ACET 5/325MG TAB PO PRN ×3 (09:35→21:44)
[2021-10-27] MEDS: APIXABAN 2.5 MG TAB PO SCH ×2 (09:36→21:43)
[2021-10-27] MEDS: SACUBITRIL-VALSARTAN 24mg/26mg TAB PO SCH ×2 (09:36→21:43)
[2021-10-27] MEDS: FAMOTIDINE (10MG/ML) 2ML VL IV SCH (09:37)
[2021-10-27] MEDS: FUROSEMIDE 20 MG/2 ML VIAL IV SCH (09:38)
[2021-10-27] MEDS: CARVEDILOL 12.5 MG TAB PO SCH ×2 (09:39→21:42)
[2021-10-27] MEDS: NICOTINE 21MG/24 HR TOPICAL PATCH TD SCH (09:39)
[2021-10-27] MEDS ORDERED: NICOTINE 21MG/24 HR TOPICAL PATCH TD SCH (10:00)
[2021-10-27] MEDS ORDERED: methylPREDNISolone SOD SUCC 125 MG/2 ML VL IV SCH (10:00)
[2021-10-27 11:54] VITALS: BP 103/75
[2021-10-27] MEDS: PROMETHAZINE HCL 6.25 MG/5 ML ORAL SYRUP PO PRN ×2 (15:34→21:45)
[2021-10-27 16:00] VITALS: BP 118/73
[2021-10-27 21:06] VITALS: BP 118/73
[2021-10-27 21:41] VITALS: BP 104/70
[2021-10-27] MEDS: ATORVASTATIN 20 MG TAB PO SCH (21:43)
[2021-10-27 23:12] LABS: Alcohol, Urine < 3.0 mg/dL (0-10); Amphetamine Screen, Urine NEGATIVE (NEGATIVE); Barbiturate Scree,Urine NEGATIVE (NEGATIVE); Benzodiazephine Screen, Urine NEGATIVE (NEGATIVE); Cannabinoid Screen, Urine NEGATIVE (NEGATIVE); Cocaine Screen, Urine NEGATIVE (NEGATIVE); Opiate Scree,Urine POSITIVE (NEGATIVE); Phencyclidine Screen, Urine NEGATIVE (NEGATIVE)
[2021-10-28] MEDS: ALBUTEROL SULF 2.5 MG/0.5ML(0.5%) NEB SOLN NEB SCH ×5 (01:31→22:54)
[2021-10-28 05:00] VITALS: BP 103/70
[2021-10-28] MEDS: SODIUM CHLOR 0.9% PF (SALINE LOCK) 10ML VIAL/SYR IV SCH ×3 (05:31→21:29)
[2021-10-28] MEDS: HYDROcodone-ACET 5/325MG TAB PO PRN ×4 (05:32→22:54)
[2021-10-28 09:00] VITALS: BP 130/86
[2021-10-28] MEDS: FUROSEMIDE 20 MG/2 ML VIAL IV SCH (10:24)
[2021-10-28] MEDS: methylPREDNISolone SOD SUCC 40 MG/ML VL IV SCH (10:25)
[2021-10-28] MEDS: FAMOTIDINE (10MG/ML) 2ML VL IV SCH (10:25)
[2021-10-28] MEDS: CARVEDILOL 12.5 MG TAB PO SCH ×2 (10:26→21:30)
[2021-10-28] MEDS: SACUBITRIL-VALSARTAN 24mg/26mg TAB PO SCH ×2 (10:27→21:31)
[2021-10-28] MEDS: APIXABAN 2.5 MG TAB PO SCH ×2 (10:27→21:30)
[2021-10-28] MEDS: NICOTINE 21MG/24 HR TOPICAL PATCH TD SCH (10:28)
[2021-10-28] MEDS: PROMETHAZINE HCL 6.25 MG/5 ML ORAL SYRUP PO PRN ×2 (10:45→17:49)
[2021-10-28 12:55] VITALS: BP 101/74
[2021-10-28] MEDS ORDERED: APIX5TAB PO (13:54)
[2021-10-28] MEDS ORDERED: FERR-20 PO (14:08)
[2021-10-28] MEDS ORDERED: PROM25TA5 PO (14:08)
[2021-10-28] MEDS ORDERED: CHOL20007 PO (14:08)
[2021-10-28 17:00] VITALS: BP 98/68
[2021-10-28] MEDS: ONDANSETRON HCL 4 MG/2 ML VIAL IV PRN ×2 (17:48→22:54)
[2021-10-28] MEDS: DOCUSATE SOD 100 MG CAP PO PRN (21:31)
[2021-10-28] MEDS: ATORVASTATIN 20 MG TAB PO SCH (21:31)
[2021-10-28 21:32] VITALS: BP 113/82
[2021-10-29] MEDS: PROMETHAZINE HCL 6.25 MG/5 ML ORAL SYRUP PO PRN ×2 (00:05→16:18)
[2021-10-29] MEDS: ALBUTEROL SULF 2.5 MG/0.5ML(0.5%) NEB SOLN NEB SCH ×5 (02:10→22:20)
[2021-10-29] MEDS: HYDROcodone-ACET 5/325MG TAB PO PRN ×3 (04:47→22:05)
[2021-10-29] MEDS: SODIUM CHLOR 0.9% PF (SALINE LOCK) 10ML VIAL/SYR IV SCH ×3 (05:04→22:07)
[2021-10-29 05:05] VITALS: BP 117/82
[2021-10-29 06:07] LABS: Basophils # (auto) 0 10 ^3/uL (0-0.2); Basophils % (auto) 0.5 % (0.0-2.0); Eosinophils # (auto) 0.1 10 ^3/uL (0-0.8); Eosinophils % (auto) 1.6 % (0.0-7.0); Hematocrit 41.3 % (41.0-53.0); Hemoglobin 13.5 g/dL (13.5-17.5); Lymphocytes # (auto) 1.8 10 ^3/uL (0.4-5.4); Lymphocytes % (auto) 30.3 % (10.0-50.0); Mean Corpuscular Hemoglobin 31.3 pg (28.0-32.0); Mean Corpuscular Hgb Conc. 32.7 g/dL (32.0-36.0); Mean Corpuscular Volume 95.9 fL (80.0-100.0); Monocytes # (auto) 0.4 10 ^3/uL (0-1.3); Monocytes % (auto) 7.4 % (0.0-12.0); Neutrophils # (auto) 3.6 10 ^3/uL (1.6-8.6); Neutrophils % (auto) 60.2 % (37.0-80.0); Nucleated Red Blood Cells % 0.2 %; Red Blood Cells 4.31 10^6/uL (4.5-5.90); Red Cell Distribution Width 15.4 % (11.8-14.3); White Blood Cell 6.1 10^3/uL (4.4-10.8)
[2021-10-29 06:21] LABS: INR 1.16 (0.9-1.15)
[2021-10-29 06:36] LABS: Potassium 3.9 mmol/L (3.5-5.1)
[2021-10-29 06:52] LABS: BUN/Creatinine Ratio 25.7; Calcium 8.8 mg/dL (8.5-10.1); Magnesium 2.3 mg/dL (1.6-2.6)
[2021-10-29] MEDS: FUROSEMIDE 20 MG/2 ML VIAL IV SCH (09:08)
[2021-10-29] MEDS: methylPREDNISolone SOD SUCC 40 MG/ML VL IV SCH (09:08)
[2021-10-29] MEDS: FAMOTIDINE (10MG/ML) 2ML VL IV SCH (09:08)
[2021-10-29] MEDS: SACUBITRIL-VALSARTAN 24mg/26mg TAB PO SCH ×2 (09:09→22:00)
[2021-10-29] MEDS: APIXABAN 2.5 MG TAB PO SCH (09:09)
[2021-10-29] MEDS: NICOTINE 21MG/24 HR TOPICAL PATCH TD SCH (09:09)
[2021-10-29] MEDS: CARVEDILOL 12.5 MG TAB PO SCH ×2 (09:09→22:00)
[2021-10-29 09:10] VITALS: BP 115/73
[2021-10-29] MEDS ORDERED: REGADENOSON 0.4 MG/5 ML SYRG IV ONE (11:15)
[2021-10-29] MEDS ORDERED: ADENOSINE 44 MG in GIVE UN-DILUTED 0 ML IV STA (11:45)
[2021-10-29 12:22] VITALS: BP 113/77
[2021-10-29] MEDS ORDERED: CARV6.25 PO (13:30)
[2021-10-29] MEDS ORDERED: NIC21P TOP (13:30)
[2021-10-29] MEDS ORDERED: PRED20TA2 PO (13:30)
[2021-10-29] MEDS ORDERED: FURO1TAB33 PO (13:30)
[2021-10-29] MEDS ORDERED: ALBUAER3 IN (13:30)
[2021-10-29] MEDS ORDERED: ATO40T PO (13:33)
[2021-10-29] MEDS ORDERED: CHOL20007 PO (13:33)
[2021-10-29] MEDS: DOCUSATE SOD 100 MG CAP PO PRN (16:17)
[2021-10-29] MEDS: ATORVASTATIN 20 MG TAB PO SCH (22:04)
[2021-10-29] MEDS: ONDANSETRON HCL 4 MG/2 ML VIAL IV PRN (22:05)
[2021-10-29 22:28] VITALS: BP 94/64
[2021-10-29] MEDS ORDERED: SODIUM CHLORIDE 0.9% 1,000 ML IV ONE (23:30)
[2021-10-30] VITALS (9 sets, daily range): BP systolic 89–137; BP diastolic 62–81
[2021-10-30] MEDS: ALBUTEROL SULF 2.5 MG/0.5ML(0.5%) NEB SOLN NEB SCH ×6 (02:17→22:53)
[2021-10-30] MEDS: SODIUM CHLOR 0.9% PF (SALINE LOCK) 10ML VIAL/SYR IV SCH ×3 (05:32→22:18)
[2021-10-30 08:48] LABS: Basophils # (auto) 0 10 ^3/uL (0-0.2); Basophils % (auto) 0.4 % (0.0-2.0); Eosinophils # (auto) 0.1 10 ^3/uL (0-0.8); Eosinophils % (auto) 2.5 % (0.0-7.0); Hematocrit 42.2 % (41.0-53.0); Hemoglobin 13.6 g/dL (13.5-17.5); Lymphocytes # (auto) 1.9 10 ^3/uL (0.4-5.4); Lymphocytes % (auto) 37.2 % (10.0-50.0); Mean Corpuscular Hemoglobin 30.8 pg (28.0-32.0); Mean Corpuscular Hgb Conc. 32.3 g/dL (32.0-36.0); Mean Corpuscular Volume 95.4 fL (80.0-100.0); Monocytes # (auto) 0.3 10 ^3/uL (0-1.3); Monocytes % (auto) 6.3 % (0.0-12.0); Neutrophils # (auto) 2.7 10 ^3/uL (1.6-8.6); Neutrophils % (auto) 53.6 % (37.0-80.0); Nucleated Red Blood Cells % 0.1 %; Red Blood Cells 4.42 10^6/uL (4.5-5.90); Red Cell Distribution Width 15.6 % (11.8-14.3); White Blood Cell 5.1 10^3/uL (4.4-10.8)
[2021-10-30 09:18] LABS: Calcium 7.7 mg/dL (8.5-10.1); Potassium 3.5 mmol/L (3.5-5.1)
[2021-10-30 09:21] LABS: BUN/Creatinine Ratio 25.7
[2021-10-30 09:28] LABS: INR 1.12 (0.9-1.15); Partial Thromboplastin Time 22.7 sec (23.6-33.0)
[2021-10-30] MEDS: methylPREDNISolone SOD SUCC 40 MG/ML VL IV SCH (10:41)
[2021-10-30] MEDS: FUROSEMIDE 20 MG/2 ML VIAL IV SCH (10:41)
[2021-10-30] MEDS: FAMOTIDINE (10MG/ML) 2ML VL IV SCH (10:41)
[2021-10-30] MEDS: CARVEDILOL 12.5 MG TAB PO SCH (10:42)
[2021-10-30] MEDS: SACUBITRIL-VALSARTAN 24mg/26mg TAB PO SCH ×2 (10:42→22:12)
[2021-10-30] MEDS: NICOTINE 21MG/24 HR TOPICAL PATCH TD SCH (10:43)
[2021-10-30] MEDS ORDERED: fentaNYL CITRATE 100 MCG/2 ML VL ONE (14:40)
[2021-10-30] MEDS ORDERED: HEPARIN SODIUM (PORCINE) 5000 UNITS/ML 1ML VIAL ONE (14:40)
[2021-10-30] MEDS ORDERED: ANGIOMAX 250 MG VIAL IV ONE (14:40)
[2021-10-30] MEDS ORDERED: VERAPAMIL 2.5MG/ML INJ 2ML VIAL IV ONE (14:40)
[2021-10-30] MEDS ORDERED: MIDAZOLAM HCL 2MG/2ML 2ml VIAL (1mg/ml) ONE (14:41)
[2021-10-30] MEDS ORDERED: LIDOCAINE 2%HCL (LOCAL ANESTH.) INJ 10ml MDV ONE (14:41)
[2021-10-30] MEDS ORDERED: SODIUM CHL 0.9% 0 ML ONE (14:41)
[2021-10-30] MEDS ORDERED: IOHEXOL 350 MG/ML 100ML IJ ONE (14:41)
[2021-10-30] MEDS: Ensure HIGH Protein Chocolate 8oz Bottle PO SCH (18:00)
[2021-10-30] MEDS: DOCUSATE SOD 100 MG CAP PO PRN (22:12)
[2021-10-30] MEDS: ONDANSETRON HCL 4 MG/2 ML VIAL IV PRN (22:12)
[2021-10-30] MEDS: ATORVASTATIN 20 MG TAB PO SCH (22:12)
[2021-10-30] MEDS: HYDROcodone-ACET 5/325MG TAB PO PRN (22:12)
[2021-10-30] MEDS: CARVEDILOL 3.125 MG TAB PO SCH (22:18)
[2021-10-31 01:07] VITALS: BP 137/72
[2021-10-31] MEDS: ALBUTEROL SULF 2.5 MG/0.5ML(0.5%) NEB SOLN NEB SCH ×3 (02:33→10:13)
[2021-10-31 05:00] VITALS: BP 104/59
[2021-10-31] MEDS: HYDROcodone-ACET 5/325MG TAB PO PRN ×2 (05:13→11:18)
[2021-10-31 06:39] LABS: BUN/Creatinine Ratio 31.6; Calcium 8.9 mg/dL (8.5-10.1)
[2021-10-31] MEDS: Ensure HIGH Protein Chocolate 8oz Bottle PO SCH (08:00)
[2021-10-31 09:00] VITALS: BP 112/75
[2021-10-31] MEDS ORDERED: FUROSEMIDE 20 MG TAB PO SCH (10:00)
[2021-10-31] MEDS: SACUBITRIL-VALSARTAN 24mg/26mg TAB PO SCH (11:07)
[2021-10-31] MEDS: CARVEDILOL 3.125 MG TAB PO SCH (11:08)
[2021-10-31] MEDS: NICOTINE 21MG/24 HR TOPICAL PATCH TD SCH (11:09)
[2021-10-31 12:32] VITALS: BP 122/74
== END 2021-10-31 13:00 | disposition home or self-care (01) | DRG 286 ==
LOC: ER 08:46 → TELE 15:34 → TELE-WESTW 17:34
PROVIDERS: ADMIT Nurse Practitioner Family; ATTEND Internal Medicine
PROC: 4A023N7 Measurement of Cardiac Sampling and Pressure, Left Heart, Percutaneous Approach (ICD-10-PCS; principal; 2021-10-30)
PROC: B2111ZZ Fluoroscopy of Multiple Coronary Arteries using Low Osmolar Contrast (ICD-10-PCS; 2021-10-30)
PROC: B2151ZZ Fluoroscopy of Left Heart using Low Osmolar Contrast (ICD-10-PCS; 2021-10-30)
DX: I11.0 Hypertensive heart disease with heart failure (principal); J96.01 Acute respiratory failure with hypoxia; I50.43 Acute on chronic combined systolic (congestive) and diastolic (congestive) heart failure; J44.1 Chronic obstructive pulmonary disease with (acute) exacerbation; I27.82 Chronic pulmonary embolism; I42.9 Cardiomyopathy, unspecified; D72.819 Decreased white blood cell count, unspecified; M85.80 Other specified disorders of bone density and structure, unspecified site; E55.9 Vitamin D deficiency, unspecified; Z20.822 Contact with and (suspected) exposure to COVID-19; I36.1 Nonrheumatic tricuspid (valve) insufficiency; K40.90 Unilateral inguinal hernia, without obstruction or gangrene, not specified as recurrent; F17.210 Nicotine dependence, cigarettes, uncomplicated; Z85.46 Personal history of malignant neoplasm of prostate; Z79.01 Long term (current) use of anticoagulants
CPT/HCPCS: 36415; 70450; 71045; 71275; 73610; 78452; 80048; 80053; 80061; 80307; 82306; 83735; 83880; 84443; 84484; 85025; 85610; 85730; 86850; 86900; 86901; 87426; 93005; 93017; 93306; 93458; 94640; 97163; 99152; G0378; J0153; J2001; J2250; J2405; J3490

== ENCOUNTER 2021-11-21 07:22 | Inpatient (IN) | payer MEDICARE ==
[~2021-11-21] VITALS: Ht 172.7 cm; Wt 51.2 kg
[~2021-11-21 07:22] MED LIST changes: +ALBUAER3 IN; -APIX2.5T PO; +APIX5TAB PO; +ATO40T PO; -ATOR-47 PO; +CARV6.25 PO; +CHOL20007 PO; +FERR-20 PO; -HYDR50TA15 PO; -METO1TAB9 PO; +NIC21P TOP; -PANT40TA2 PO; +PRED20TA2 PO; +PROM25TA5 PO; -SPIR25TA8 PO
[2021-11-21] MEDS ORDERED: ALBUTEROL SULF 2.5 MG/0.5ML(0.5%) NEB SOLN NEB ONE ×4 (07:45→13:15)
[2021-11-21] MEDS ORDERED: methylPREDNISolone SOD SUCC 125 MG/2 ML VL IV ONE (07:45)
[2021-11-21] MEDS ORDERED: cefTRIAXone 1GM/50ML D5W 50 ML IV ONE ×2 (07:45→13:15)
[2021-11-21] MEDS ORDERED: IPRATROPIUM BROM 0.5 MG/2.5ML INH SOL NEB ONE ×2 (07:45→13:15)
[2021-11-21 08:39] LABS: Basophils # (auto) 0 10 ^3/uL (0-0.2); Basophils % (auto) 0.5 % (0.0-2.0); Eosinophils # (auto) 0.1 10 ^3/uL (0-0.8); Eosinophils % (auto) 1.2 % (0.0-7.0); Hematocrit 43.5 % (41.0-53.0); Hemoglobin 14.6 g/dL (13.5-17.5); Lymphocytes # (auto) 0.8 10 ^3/uL (0.4-5.4); Lymphocytes % (auto) 15.4 % (10.0-50.0); Mean Corpuscular Hemoglobin 31.7 pg (28.0-32.0); Mean Corpuscular Hgb Conc. 33.5 g/dL (32.0-36.0); Mean Corpuscular Volume 94.7 fL (80.0-100.0); Monocytes # (auto) 0.4 10 ^3/uL (0-1.3); Monocytes % (auto) 8.3 % (0.0-12.0); Neutrophils # (auto) 3.7 10 ^3/uL (1.6-8.6); Neutrophils % (auto) 74.6 % (37.0-80.0); Nucleated Red Blood Cells % 0.1 %; Red Blood Cells 4.59 10^6/uL (4.5-5.90); Red Cell Distribution Width 16.6 % (11.8-14.3); White Blood Cell 4.9 10^3/uL (4.4-10.8)
[2021-11-21 09:30] LABS: Calcium 8.1 mg/dL (8.5-10.1); Potassium 5.4 mmol/L (3.5-5.1)
[2021-11-21 09:34] LABS: BUN/Creatinine Ratio 25.6; Bilirubin, Total 0.9 mg/dL (0.2-1.0)
[2021-11-21] MEDS ORDERED: FUROSEMIDE 20 MG/2 ML VIAL IV ONE (10:00)
[2021-11-21] MEDS ORDERED: CALCIUM GLUC 1,000mg/50ml-NS 50 ML IV ONE (10:00)
[2021-11-21] MEDS ORDERED: NITROGLYCERIN 0.4 MG SL TAB SL PRN (10:30)
[2021-11-21] MEDS ORDERED: MORPHINE SULFATE INJECTION 2 MG/ML SYRG IV PRN (10:30)
[2021-11-21 12:29] VITALS: BP 117/86
[2021-11-21 13:00] VITALS: BP 117/86
[2021-11-21] MEDS ORDERED: SODIUM ZIRCONIUM CYCL 10 GM PAK PO ONE (13:15)
[2021-11-21] MEDS ORDERED: MONTELUKAST SODIUM 10 MG TAB PO ONE (13:15)
[2021-11-21] MEDS ORDERED: FUROSEMIDE 40 MG/4 ML VIAL IV ONE (13:15)
[2021-11-21] MEDS ORDERED: FERROUS SULFATE 325mg EC TAB PO ONE (13:15)
[2021-11-21] MEDS ORDERED: BUDESONIDE (INHALATION) 0.5 MG/2 ML NEB NEB ONE (13:15)
[2021-11-21] MEDS ORDERED: hydrALAZINE HCL 20 MG/ML VL IV PRN (13:15)
[2021-11-21] MEDS ORDERED: FOLIC ACID 1 MG TAB PO ONE (13:15)
[2021-11-21] MEDS ORDERED: PANTOPRAZOLE 40 MG/10 ML VIAL INJ IV ONE (13:15)
[2021-11-21] MEDS ORDERED: CALCIUM CHL 100MG/ML 1,000 MG in D5W 5% 100 ML IV ONE (13:15)
[2021-11-21] MEDS ORDERED: InsuLIN REG 1unit/0.01ml Soln (100units/ml) IV ONE (13:15)
[2021-11-21] MEDS ORDERED: DEXTROSE (50%) 50ML SYRG IV ONE (13:15)
[2021-11-21] MEDS ORDERED: SODIUM BICARBONATE 8.4% INJ 50ML SYRINGE IV ONE (13:15)
[2021-11-21] MEDS ORDERED: SUCRALFATE 1 GM/10 ML ORAL SUSP PO ONE (13:15)
[2021-11-21] MEDS ORDERED: HYDROcodone-ACET 5/325MG TAB PO ONE (13:15)
[2021-11-21] MEDS ORDERED: DOCUSATE SOD 100 MG CAP PO PRN (13:15)
[2021-11-21] MEDS ORDERED: ACETAMINOPHEN 325 MG TAB PO PRN (13:15)
[2021-11-21] MEDS: IPRATROPIUM BROM 0.5 MG/2.5ML INH SOL NEB SCH ×3 (13:38→23:06)
[2021-11-21] MEDS ORDERED: AZITHROMYCIN 500MG/ 250ML 250 ML IV ONE (14:15)
[2021-11-21 14:17] VITALS: BP 117/86
[2021-11-21 14:45] LABS: Magnesium 2.5 mg/dL (1.6-2.6); Phosphorus 3.8 mg/dL (2.5-4.90)
[2021-11-21] MEDS: ONDANSETRON HCL 4 MG/2 ML VIAL IV PRN (14:46)
[2021-11-21] MEDS: MORPHINE SULFATE INJECTION 2 MG/ML SYRG IV PRN ×2 (14:47→23:28)
[2021-11-21] MEDS: methylPREDNISolone SOD SUCC 40 MG/ML VL IV SCH ×2 (14:54→22:25)
[2021-11-21 15:21] LABS: INR 0.97 (0.9-1.15); Partial Thromboplastin Time 30.9 sec (23.6-33.0)
[2021-11-21 17:00] VITALS: BP 114/81
[2021-11-21] MEDS: FUROSEMIDE 20 MG/2 ML VIAL IV SCH ×2 (18:00)
[2021-11-21] MEDS: FERROUS SULFATE 325mg EC TAB PO SCH (18:16)
[2021-11-21] MEDS: SUCRALFATE 1 GM/10 ML ORAL SUSP PO SCH ×2 (18:16→22:25)
[2021-11-21 22:00] VITALS: BP 126/88
[2021-11-21] MEDS: ATORVASTATIN 20 MG TAB PO SCH (22:26)
[2021-11-21] MEDS: CARVEDILOL 3.125 MG TAB PO SCH (22:26)
[2021-11-21] MEDS: SACUBITRIL-VALSARTAN 24mg/26mg TAB PO SCH (22:26)
[2021-11-21] MEDS: APIXABAN 5 MG TAB PO SCH (22:26)
[2021-11-21] MEDS: SODIUM ZIRCONIUM CYCL 10 GM PAK PO SCH (22:27)
[2021-11-21] MEDS: MONTELUKAST SODIUM 10 MG TAB PO SCH (22:27)
[2021-11-21] MEDS: BUDESONIDE (INHALATION) 0.5 MG/2 ML NEB NEB SCH (23:05)
[2021-11-22] MEDS: IPRATROPIUM BROM 0.5 MG/2.5ML INH SOL NEB SCH ×6 (02:19→22:07)
[2021-11-22 05:00] VITALS: BP 109/81
[2021-11-22] MEDS: ALBUTEROL SULF 2.5 MG/0.5ML(0.5%) NEB SOLN NEB PRN ×3 (06:00→22:07)
[2021-11-22] MEDS: FUROSEMIDE 20 MG/2 ML VIAL IV SCH ×2 (06:00)
[2021-11-22] MEDS: BUDESONIDE (INHALATION) 0.5 MG/2 ML NEB NEB SCH ×2 (06:00→18:37)
[2021-11-22 06:07] LABS: Basophils # (auto) 0 10 ^3/uL (0-0.2); Basophils % (auto) 0.1 % (0.0-2.0); Eosinophils # (auto) 0 10 ^3/uL (0-0.8); Eosinophils % (auto) 0.1 % (0.0-7.0); Hematocrit 42.5 % (41.0-53.0); Hemoglobin 14.2 g/dL (13.5-17.5); Lymphocytes # (auto) 0.5 10 ^3/uL (0.4-5.4); Lymphocytes % (auto) 6.7 % (10.0-50.0); Mean Corpuscular Hemoglobin 31.4 pg (28.0-32.0); Mean Corpuscular Hgb Conc. 33.5 g/dL (32.0-36.0); Mean Corpuscular Volume 93.7 fL (80.0-100.0); Monocytes # (auto) 0.2 10 ^3/uL (0-1.3); Monocytes % (auto) 2.5 % (0.0-12.0); Neutrophils # (auto) 6.9 10 ^3/uL (1.6-8.6); Neutrophils % (auto) 90.6 % (37.0-80.0); Red Blood Cells 4.54 10^6/uL (4.5-5.90); Red Cell Distribution Width 16.7 % (11.8-14.3); White Blood Cell 7.6 10^3/uL (4.4-10.8)
[2021-11-22 06:24] LABS: Potassium 4.3 mmol/L (3.5-5.1)
[2021-11-22 06:29] LABS: INR 0.96 (0.9-1.15); Partial Thromboplastin Time 29.9 sec (23.6-33.0)
[2021-11-22] MEDS: methylPREDNISolone SOD SUCC 40 MG/ML VL IV SCH ×3 (06:44→22:31)
[2021-11-22] MEDS: SODIUM ZIRCONIUM CYCL 10 GM PAK PO SCH ×3 (06:44→22:32)
[2021-11-22 06:45] LABS: Bilirubin, Total 0.8 mg/dL (0.2-1.0); CRP High Sensitivity 2.71 mg/dL (< 0.3); Calcium 9.6 mg/dL (8.5-10.1); Total Protein 6.5 g/dL (6.4-8.2); Uric Acid 10.3 mg/dL (3.5-7.2)
[2021-11-22] MEDS: SUCRALFATE 1 GM/10 ML ORAL SUSP PO SCH ×4 (06:45→22:31)
[2021-11-22] MEDS: FERROUS SULFATE 325mg EC TAB PO SCH ×3 (08:07→18:00)
[2021-11-22] MEDS: cefTRIAXone 1GM/50ML D5W 50 ML IV SCH (08:07)
[2021-11-22] MEDS: MORPHINE SULFATE INJECTION 2 MG/ML SYRG IV PRN ×2 (08:08→23:10)
[2021-11-22 09:00] VITALS: BP_SYST 105; BP_SYST 117; BP_DIAS 69; BP_DIAS 71
[2021-11-22] MEDS: THIAMINE HCL 100 MG TAB PO SCH (09:09)
[2021-11-22] MEDS: ASPirin 81 mg TAB PO SCH (09:09)
[2021-11-22] MEDS: AZITHROMYCIN 500MG/ 250ML 250 ML IV SCH (09:09)
[2021-11-22] MEDS: FOLIC ACID 1 MG TAB PO SCH (09:09)
[2021-11-22] MEDS: PANTOPRAZOLE 40 MG/10 ML VIAL INJ IV SCH (09:09)
[2021-11-22] MEDS: SACUBITRIL-VALSARTAN 24mg/26mg TAB PO SCH ×2 (09:11→22:00)
[2021-11-22] MEDS: APIXABAN 5 MG TAB PO SCH ×2 (09:11→22:32)
[2021-11-22] MEDS: CHOLECALCIFEROL (VITD3) 2,000 UNIT CAP/TAB PO SCH (09:12)
[2021-11-22] MEDS ORDERED: CAL025T GT (09:39)
[2021-11-22] MEDS ORDERED: ALBUAER3 IN (09:39)
[2021-11-22] MEDS ORDERED: 1,4-CRY XX (09:40)
[2021-11-22] MEDS ORDERED: ENOXAPARIN SOD 40 MG/0.4 ML SYRINGE SC SCH (10:00)
[2021-11-22] MEDS ORDERED: CYANOCOBALAMIN 500 MCG TAB PO SCH (10:00)
[2021-11-22] MEDS: CARVEDILOL 3.125 MG TAB PO SCH ×2 (10:00→22:59)
[2021-11-22] MEDS ORDERED: NICOTINE 21MG/24 HR TOPICAL PATCH TD ONE (12:15)
[2021-11-22] MEDS: HYDROcodone-ACET 5/325MG TAB PO PRN ×2 (12:32→16:10)
[2021-11-22 13:00] VITALS: BP 115/74
[2021-11-22] MEDS: ONDANSETRON HCL 4 MG/2 ML VIAL IV PRN ×2 (15:43→23:14)
[2021-11-22 17:03] VITALS: BP_SYST 111; BP_SYST 118; BP_DIAS 76; BP_DIAS 81
[2021-11-22 20:00] VITALS: BP 100/69
[2021-11-22 22:00] VITALS: BP 100/69
[2021-11-22] MEDS: DOCUSATE SOD 100 MG CAP PO SCH (22:32)
[2021-11-22] MEDS: MONTELUKAST SODIUM 10 MG TAB PO SCH (22:32)
[2021-11-22] MEDS: ATORVASTATIN 20 MG TAB PO SCH (22:33)
[2021-11-23] MEDS: IPRATROPIUM BROM 0.5 MG/2.5ML INH SOL NEB SCH ×6 (02:41→22:44)
[2021-11-23] MEDS: ALBUTEROL SULF 2.5 MG/0.5ML(0.5%) NEB SOLN NEB PRN ×5 (02:41→22:44)
[2021-11-23] MEDS: ONDANSETRON HCL 4 MG/2 ML VIAL IV PRN ×3 (03:03→21:38)
[2021-11-23] MEDS: LACTULOSE 20Gm/30ML SOLN PO PRN (03:03)
[2021-11-23 05:00] VITALS: BP_SYST 102; BP_SYST 103; BP_DIAS 67; BP_DIAS 76
[2021-11-23 05:33] LABS: Calcium 8.8 mg/dL (8.5-10.1); Potassium 4.5 mmol/L (3.5-5.1)
[2021-11-23 05:38] LABS: BUN/Creatinine Ratio 27.9
[2021-11-23] MEDS: HYDROcodone-ACET 5/325MG TAB PO PRN ×2 (06:17→18:33)
[2021-11-23] MEDS: SUCRALFATE 1 GM/10 ML ORAL SUSP PO SCH ×4 (06:18→21:36)
[2021-11-23] MEDS: SODIUM ZIRCONIUM CYCL 10 GM PAK PO SCH ×2 (06:18→17:25)
[2021-11-23] MEDS: FERROUS SULFATE 325mg EC TAB PO SCH ×3 (08:00→18:32)
[2021-11-23] MEDS: methylPREDNISolone SOD SUCC 40 MG/ML VL IV SCH ×2 (08:54→21:36)
[2021-11-23] MEDS: PANTOPRAZOLE 40 MG/10 ML VIAL INJ IV SCH (08:54)
[2021-11-23] MEDS: CHOLECALCIFEROL (VITD3) 2,000 UNIT CAP/TAB PO SCH (08:55)
[2021-11-23] MEDS: DOCUSATE SOD 100 MG CAP PO SCH ×2 (08:55→21:38)
[2021-11-23] MEDS: FOLIC ACID 1 MG TAB PO SCH (08:55)
[2021-11-23] MEDS: THIAMINE HCL 100 MG TAB PO SCH (08:55)
[2021-11-23] MEDS: APIXABAN 5 MG TAB PO SCH ×2 (08:55→21:37)
[2021-11-23] MEDS: ASPirin 81 mg TAB PO SCH (08:55)
[2021-11-23 09:00] VITALS: BP 94/64
[2021-11-23] MEDS: BUDESONIDE (INHALATION) 0.5 MG/2 ML NEB NEB SCH ×2 (09:28→18:53)
[2021-11-23] MEDS: cefTRIAXone 1GM/50ML D5W 50 ML IV SCH (09:30)
[2021-11-23] MEDS: NICOTINE 21MG/24 HR TOPICAL PATCH TD SCH (09:30)
[2021-11-23] MEDS: FUROSEMIDE 20 MG TAB PO SCH (10:00)
[2021-11-23] MEDS: CARVEDILOL 3.125 MG TAB PO SCH ×2 (10:00→21:39)
[2021-11-23] MEDS: SACUBITRIL-VALSARTAN 24mg/26mg TAB PO SCH ×2 (10:00→21:39)
[2021-11-23] MEDS: LORazepam 0.5 MG TAB PO PRN ×2 (11:10→20:40)
[2021-11-23] MEDS: AZITHROMYCIN 500MG/ 250ML 250 ML IV SCH (11:14)
[2021-11-23 13:00] VITALS: BP 99/64
[2021-11-23 17:00] VITALS: BP 95/67
[2021-11-23 18:31] VITALS: BP 114/58
[2021-11-23] MEDS: MONTELUKAST SODIUM 10 MG TAB PO SCH (21:37)
[2021-11-23] MEDS: ATORVASTATIN 20 MG TAB PO SCH (21:37)
[2021-11-23 22:00] VITALS: BP 102/67
[2021-11-24] MEDS: MORPHINE SULFATE INJECTION 2 MG/ML SYRG IV PRN ×2 (00:11→21:27)
[2021-11-24] MEDS: ALBUTEROL SULF 2.5 MG/0.5ML(0.5%) NEB SOLN NEB PRN ×5 (02:49→17:44)
[2021-11-24] MEDS: IPRATROPIUM BROM 0.5 MG/2.5ML INH SOL NEB SCH ×6 (02:50→21:26)
[2021-11-24 05:00] VITALS: BP 109/71
[2021-11-24] MEDS: SUCRALFATE 1 GM/10 ML ORAL SUSP PO SCH ×4 (06:49→21:20)
[2021-11-24] MEDS: LACTULOSE 20Gm/30ML SOLN PO PRN (06:49)
[2021-11-24] MEDS: cefTRIAXone 1GM/50ML D5W 50 ML IV SCH (08:21)
[2021-11-24] MEDS: FERROUS SULFATE 325mg EC TAB PO SCH ×3 (08:21→17:24)
[2021-11-24] MEDS: ONDANSETRON HCL 4 MG/2 ML VIAL IV PRN ×2 (08:22→19:44)
[2021-11-24 09:00] VITALS: BP 142/75
[2021-11-24] MEDS: methylPREDNISolone SOD SUCC 40 MG/ML VL IV SCH ×2 (09:24→21:20)
[2021-11-24] MEDS: PANTOPRAZOLE 40 MG/10 ML VIAL INJ IV SCH (09:24)
[2021-11-24] MEDS: DOCUSATE SOD 100 MG CAP PO SCH ×2 (09:27→21:20)
[2021-11-24] MEDS: APIXABAN 5 MG TAB PO SCH ×2 (09:28→21:21)
[2021-11-24] MEDS: FOLIC ACID 1 MG TAB PO SCH (09:28)
[2021-11-24] MEDS: ASPirin 81 mg TAB PO SCH (09:28)
[2021-11-24] MEDS: CHOLECALCIFEROL (VITD3) 2,000 UNIT CAP/TAB PO SCH (09:29)
[2021-11-24] MEDS: HYDROcodone-ACET 5/325MG TAB PO PRN ×2 (09:29→16:40)
[2021-11-24] MEDS: NICOTINE 21MG/24 HR TOPICAL PATCH TD SCH (09:31)
[2021-11-24] MEDS: THIAMINE HCL 100 MG TAB PO SCH (09:33)
[2021-11-24] MEDS: CARVEDILOL 3.125 MG TAB PO SCH ×2 (09:33→21:23)
[2021-11-24] MEDS: BUDESONIDE (INHALATION) 0.5 MG/2 ML NEB NEB SCH ×2 (09:53→17:44)
[2021-11-24] MEDS: FUROSEMIDE 20 MG TAB PO SCH (10:00)
[2021-11-24] MEDS: SACUBITRIL-VALSARTAN 24mg/26mg TAB PO SCH (10:00)
[2021-11-24] MEDS: AZITHROMYCIN 500MG/ 250ML 250 ML IV SCH (10:19)
[2021-11-24 10:51] VITALS: BP 108/76
[2021-11-24] MEDS: LORazepam 0.5 MG TAB PO PRN (11:46)
[2021-11-24 13:00] VITALS: BP 123/82
[2021-11-24 17:00] VITALS: BP 125/79
[2021-11-24] MEDS: MONTELUKAST SODIUM 10 MG TAB PO SCH (21:21)
[2021-11-24] MEDS: ATORVASTATIN 20 MG TAB PO SCH (21:21)
[2021-11-24 22:00] VITALS: BP 113/78
[2021-11-25] MEDS: LORazepam 0.5 MG TAB PO PRN (00:29)
[2021-11-25] MEDS: ALBUTEROL SULF 2.5 MG/0.5ML(0.5%) NEB SOLN NEB PRN ×4 (01:36→14:19)
[2021-11-25] MEDS: IPRATROPIUM BROM 0.5 MG/2.5ML INH SOL NEB SCH ×4 (01:36→14:19)
[2021-11-25] MEDS: ONDANSETRON HCL 4 MG/2 ML VIAL IV PRN (02:58)
[2021-11-25 05:00] VITALS: BP 118/81
[2021-11-25 05:26] LABS: BUN/Creatinine Ratio 19.8; Calcium 8.2 mg/dL (8.5-10.1); Potassium 4.4 mmol/L (3.5-5.1)
[2021-11-25] MEDS: MORPHINE SULFATE INJECTION 2 MG/ML SYRG IV PRN (07:00)
[2021-11-25 09:00] VITALS: BP 186/77
[2021-11-25] MEDS: FERROUS SULFATE 325mg EC TAB PO SCH ×2 (09:45→12:06)
[2021-11-25] MEDS: cefTRIAXone 1GM/50ML D5W 50 ML IV SCH (09:45)
[2021-11-25] MEDS: CHOLECALCIFEROL (VITD3) 2,000 UNIT CAP/TAB PO SCH (09:46)
[2021-11-25] MEDS: APIXABAN 5 MG TAB PO SCH (09:46)
[2021-11-25] MEDS: NICOTINE 21MG/24 HR TOPICAL PATCH TD SCH (09:46)
[2021-11-25] MEDS: DOCUSATE SOD 100 MG CAP PO SCH (09:48)
[2021-11-25] MEDS: FUROSEMIDE 20 MG TAB PO SCH (09:48)
[2021-11-25] MEDS: THIAMINE HCL 100 MG TAB PO SCH (09:48)
[2021-11-25] MEDS: ASPirin 81 mg TAB PO SCH (09:49)
[2021-11-25] MEDS: CARVEDILOL 3.125 MG TAB PO SCH (09:49)
[2021-11-25] MEDS: methylPREDNISolone SOD SUCC 40 MG/ML VL IV SCH (09:50)
[2021-11-25] MEDS: PANTOPRAZOLE 40 MG/10 ML VIAL INJ IV SCH (09:50)
[2021-11-25] MEDS: AZITHROMYCIN 500MG/ 250ML 250 ML IV SCH (10:00)
[2021-11-25] MEDS: FOLIC ACID 1 MG TAB PO SCH (10:00)
[2021-11-25] MEDS: BUDESONIDE (INHALATION) 0.5 MG/2 ML NEB NEB SCH (10:07)
[2021-11-25] MEDS: SUCRALFATE 1 GM/10 ML ORAL SUSP PO SCH (11:46)
[2021-11-25] MEDS ORDERED: ALBUAER3 IN (12:50)
[2021-11-25] MEDS ORDERED: CAR3125T PO (12:50)
[2021-11-25] MEDS ORDERED: SACU1TAB PO (12:50)
[2021-11-25] MEDS ORDERED: PRED20TA2 PO (12:50)
[2021-11-25] MEDS ORDERED: FAMO20TA10 PO (12:51)
[2021-11-25 13:00] VITALS: BP 139/86
== END 2021-11-25 16:55 | disposition home health service (06) | DRG 190 ==
LOC: EDBD 07:22 → EDUNIT# 07:22 → ER 07:22 → OVERFLOW 10:25 → CENTRAL 12:26
PROVIDERS: ADMIT Hospitalist; ATTEND Internal Medicine
DX: J44.1 Chronic obstructive pulmonary disease with (acute) exacerbation (principal); I50.43 Acute on chronic combined systolic (congestive) and diastolic (congestive) heart failure; E44.0 Moderate protein-calorie malnutrition; I27.82 Chronic pulmonary embolism; Z68.1 Body mass index [BMI] 19.9 or less, adult; I42.8 Other cardiomyopathies; I11.0 Hypertensive heart disease with heart failure; I27.20 Pulmonary hypertension, unspecified; R06.03 Acute respiratory distress; E55.9 Vitamin D deficiency, unspecified; Z20.822 Contact with and (suspected) exposure to COVID-19; E78.5 Hyperlipidemia, unspecified; F17.200 Nicotine dependence, unspecified, uncomplicated; F41.9 Anxiety disorder, unspecified; M19.90 Unspecified osteoarthritis, unspecified site; K40.90 Unilateral inguinal hernia, without obstruction or gangrene, not specified as recurrent; K59.00 Constipation, unspecified; Z79.01 Long term (current) use of anticoagulants; Z79.899 Other long term (current) drug therapy; Z71.6 Tobacco abuse counseling
CPT/HCPCS: 36415; 71045; 71250; 80048; 80053; 80061; 82550; 82728; 82962; 83036; 83605; 83615; 83690; 83735; 83880; 84100; 84132; 84443; 84484; 84550; 85025; 85379; 85610; 85652; 85730; 86141; 87040; 87081; 87086; 93005; 94640; 94644; 94645; 96365; 96367; 96375; 99291; C9113; G0378; J0696; J1815; J2405; J7060

== ENCOUNTER 2021-12-11 09:16 | Emergency (ER) | payer MEDICARE ==
[~2021-12-11] VITALS: Ht 172.7 cm; Wt 54.4 kg
[~2021-12-11 09:16] MED LIST changes: +CAR3125T PO; -CARV6.25 PO; +FAMO20TA10 PO; +SACU1TAB PO; -SACU1TAB7 PO
[2021-12-11] MEDS: SODIUM CHLORIDE 0.9% 1,000 ML IVB ONE (12:00)
[2021-12-11 14:09] LABS: Basophils # (auto) 0.1 10 ^3/uL (0-0.2); Basophils % (auto) 1.4 % (0.0-2.0); Eosinophils # (auto) 0.2 10 ^3/uL (0-0.8); Eosinophils % (auto) 4.1 % (0.0-7.0); Hematocrit 44.9 % (41.0-53.0); Hemoglobin 14.9 g/dL (13.5-17.5); Lymphocytes # (auto) 1.3 10 ^3/uL (0.4-5.4); Lymphocytes % (auto) 28.1 % (10.0-50.0); Mean Corpuscular Hemoglobin 32.2 pg (28.0-32.0); Mean Corpuscular Hgb Conc. 33.1 g/dL (32.0-36.0); Mean Corpuscular Volume 97.3 fL (80.0-100.0); Monocytes # (auto) 0.4 10 ^3/uL (0-1.3); Monocytes % (auto) 8.5 % (0.0-12.0); Neutrophils # (auto) 2.8 10 ^3/uL (1.6-8.6); Neutrophils % (auto) 57.9 % (37.0-80.0); Nucleated Red Blood Cells % 0.1 %; Red Blood Cells 4.62 10^6/uL (4.5-5.90); White Blood Cell 4.8 10^3/uL (4.4-10.8)
[2021-12-11 14:10] LABS: Albumin 3.8 g/dL (3.4-5.0); Calcium 9.3 mg/dL (8.5-10.1); Potassium 4.6 mmol/L (3.5-5.1)
[2021-12-11 14:14] LABS: BUN/Creatinine Ratio 7.8; Bilirubin, Total 0.6 mg/dL (0.2-1.0); Total Protein 7.8 g/dL (6.4-8.2)
[2021-12-11 14:50] VITALS: BP 148/93
== END 2021-12-11 15:18 | disposition home or self-care (01) ==
LOC: ER 09:16
DX: S76.011A Strain of muscle, fascia and tendon of right hip, initial encounter (principal); M16.11 Unilateral primary osteoarthritis, right hip; M25.561 Pain in right knee; J44.9 Chronic obstructive pulmonary disease, unspecified; X58.XXXA Exposure to other specified factors, initial encounter; Y93.89 Activity, other specified; Y92.89 Other specified places as the place of occurrence of the external cause; Y99.8 Other external cause status
CPT/HCPCS: 36415; 74176; 80053; 84484; 85025; 96374; 99284; J7030

== ENCOUNTER → 2022-07-16 | Day surgery (SDC) | payer MEDICARE ==
[2022-07-14 12:29] LABS: Eosinophils # (auto) 0.1 10 ^3/uL (0-0.8); Hemoglobin 14.5 g/dL (13.5-17.5); Monocytes # (auto) 0.5 10 ^3/uL (0-1.3); Red Blood Cells 4.25 10^6/uL (4.5-5.90); White Blood Cell 4.5 10^3/uL (4.4-10.8)
[2022-07-14 12:31] LABS: Basophils # (auto) 0.1 10 ^3/uL (0-0.2); Basophils % (auto) 1.1 % (0.0-2.0); Eosinophils % (auto) 1.5 % (0.0-7.0); Lymphocytes # (auto) 1.4 10 ^3/uL (0.4-5.4); Lymphocytes % (auto) 29.9 % (10.0-50.0); Mean Corpuscular Hemoglobin 34.2 pg (28.0-32.0); Mean Corpuscular Volume 103.6 fL (80.0-100.0); Monocytes % (auto) 11.3 % (0.0-12.0); Neutrophils # (auto) 2.5 10 ^3/uL (1.6-8.6); Neutrophils % (auto) 56.2 % (37.0-80.0); Red Cell Distribution Width 15.5 % (11.8-14.3)
[2022-07-14 12:43] LABS: Urine Bacteria NONE SEEN /hpf (None Seen); Urine Blood Negative /uL (Negative); Urine Hyaline Cast FEW /lpf (0 - 2); Urine Specific Gravity 1.008 (1.001-1.035); Urine WBC <1 /hpf (0 - 3)
[2022-07-14 13:03] LABS: Albumin 3.6 g/dL (3.4-5.0); BUN/Creatinine Ratio 13.3; Calcium 9.1 mg/dL (8.5-10.1); Potassium 4.8 mmol/L (3.5-5.1)
[2022-07-14 13:07] LABS: Total Protein 7.1 g/dL (6.4-8.2)
[2022-07-14 13:16] LABS: INR 0.99 (0.9-1.15); Partial Thromboplastin Time 27.7 sec (24.6-33.4)
[~2022-07-16] VITALS: Ht 172.7 cm; Wt 48.5 kg
[~2022-07-16] MED LIST changes: -ALBUAER3 IN; +ALBUTEROL SULF 2.5 MG/0.5ML(0.5%) NEB SOLN NEB ONE; +ALBUTEROL SULF 2.5 MG/0.5ML(0.5%) NEB SOLN ONE; +BACITRACIN TOP OINT 1 UD PKG TOP ONE; +DexAMETHasone SOD PHOS 10MG/1ML VIAL INJ ONE; -FAMO20TA10 PO; -FERR-20 PO; -FURO1TAB33 PO; -GABA300C10 PO; +HYDROmorphone HCL 2 MG/ML VL/or syr IV PRN; +IPRATROPIUM BROM 0.5 MG/2.5ML INH SOL NEB ONE; +IPRATROPIUM BROM 0.5 MG/2.5ML INH SOL ONE; -METH750T22 PO; +METOCLOPRAMIDE HCL 5MG/ml INJ 2ml VIAL IV PRN; +MIDAZOLAM HCL 2MG/2ML 2ml VIAL (1mg/ml) ONE; +MORPHINE SULFATE 4 MG/ML SYR/VIAL IV PRN; -NIC21P TOP; +ONDANSETRON HCL 4 MG/2 ML VIAL ONE; -PRED20TA2 PO; -PROM25TA5 PO; +PROPOFOL 10 MG/ML 20 ML IV ONE; +ROCURONIUM 10MG/ML 10ML VIAL IV ONE; +ROPIVACAINE 0.5% (5MG/ML) 20ML AMPULE IJ ONE; +SODIUM CHLORIDE LOCK 10 ML ONE; +STERILE WATER 10 ML ONE; +SUCCINYLCHOLINE CHLORIDE 20 MG/ML 10ML VIAL IV ONE; +ceFAZolin 1GM/50ML 100 ML IV ONE; +fentaNYL CITRATE 100 MCG/2 ML VL ONE; +methylPREDNISolone ACETATE 80 MG/ML VL ONE
[2022-07-16 13:56] VITALS: BP 128/94
== END | disposition home or self-care (01) ==
LOC: SUR 06:14
PROVIDERS: ATTEND Podiatrist Foot & Ankle Surgery
DX: M21.42 Flat foot [pes planus] (acquired), left foot (principal); M21.072 Valgus deformity, not elsewhere classified, left ankle; M21.962 Unspecified acquired deformity of left lower leg; M20.12 Hallux valgus (acquired), left foot; Z20.822 Contact with and (suspected) exposure to COVID-19
CPT/HCPCS: 27687; 28899; 36415; 73620; 80053; 81001; 85025; 85610; 85730; 94640; C1769; C1776; J0330; J0690; J1040; J1100; J2250; J2405; J2704; J2795; J3010; J7644; U0003

== ENCOUNTER → 2022-10-29 | Day surgery (SDC) | payer MEDICARE ==
[2022-10-24 10:39] LABS: Urine WBC None Seen /hpf (0 - 3)
[2022-10-24 10:41] LABS: Basophils # (auto) 0 10 ^3/uL (0-0.2); Eosinophils # (auto) 0.1 10 ^3/uL (0-0.8); Hemoglobin 14.5 g/dL (13.5-17.5); Lymphocytes # (auto) 1.3 10 ^3/uL (0.4-5.4); Neutrophils # (auto) 1.6 10 ^3/uL (1.6-8.6); Nucleated Red Blood Cells % 0.1 %
[2022-10-24 10:43] LABS: Basophils % (auto) 0.9 % (0.0-2.0); Hematocrit 43.9 % (41.0-53.0); Lymphocytes % (auto) 38.5 % (10.0-50.0); Mean Corpuscular Hemoglobin 34.1 pg (28.0-32.0); Mean Corpuscular Hgb Conc. 33.1 g/dL (32.0-36.0); Monocytes # (auto) 0.4 10 ^3/uL (0-1.3); Monocytes % (auto) 12.8 % (0.0-12.0); Neutrophils % (auto) 45.8 % (37.0-80.0); Red Blood Cells 4.26 10^6/uL (4.5-5.90); Red Cell Distribution Width 15.9 % (11.8-14.3); White Blood Cell 3.5 10^3/uL (4.4-10.8)
[2022-10-24 11:05] LABS: Urine Bacteria NONE SEEN /hpf (None Seen); Urine Blood Negative /uL (Negative); Urine Mucus FEW (None Seen); Urine Specific Gravity 1.023 (1.001-1.035)
[2022-10-24 11:23] LABS: INR 1.11 (0.9-1.15); Partial Thromboplastin Time 30.5 sec (24.6-33.4)
[2022-10-24 11:52] LABS: Albumin 3.8 g/dL (3.4-5.0); BUN/Creatinine Ratio 15.1; Bilirubin, Total 0.8 mg/dL (0.2-1.0); Calcium 8.6 mg/dL (8.5-10.1); Total Protein 6.8 g/dL (6.4-8.2)
[~2022-10-29] VITALS: Ht 172.7 cm; Wt 52.2 kg
[~2022-10-29] MED LIST changes: -ALBUTEROL SULF 2.5 MG/0.5ML(0.5%) NEB SOLN NEB ONE; -ALBUTEROL SULF 2.5 MG/0.5ML(0.5%) NEB SOLN ONE; +BUPIVACAINE 0.5% P/F INJ 10 ML VIAL ONE; -DexAMETHasone SOD PHOS 10MG/1ML VIAL INJ ONE; -IPRATROPIUM BROM 0.5 MG/2.5ML INH SOL NEB ONE; -IPRATROPIUM BROM 0.5 MG/2.5ML INH SOL ONE; +LIDOCAINE 2% (LOCAL ANESTH.) PF 5ml SDV ONE; -METOCLOPRAMIDE HCL 5MG/ml INJ 2ml VIAL IV PRN; -MORPHINE SULFATE 4 MG/ML SYR/VIAL IV PRN; +ONDANSETRON HCL 4 MG/2 ML VIAL IV PRN; +POVIDONE IODINE 10 % TOPICAL OINT 30GM TOP ONE; -ROCURONIUM 10MG/ML 10ML VIAL IV ONE; -SODIUM CHLORIDE LOCK 10 ML ONE; -STERILE WATER 10 ML ONE; -SUCCINYLCHOLINE CHLORIDE 20 MG/ML 10ML VIAL IV ONE
[2022-10-29 09:45] VITALS: BP 129/96
== END | disposition home or self-care (01) ==
LOC: SUR 05:41
PROVIDERS: ATTEND Podiatrist Foot & Ankle Surgery
DX: M21.071 Valgus deformity, not elsewhere classified, right ankle (principal); M21.41 Flat foot [pes planus] (acquired), right foot; M20.11 Hallux valgus (acquired), right foot; M21.961 Unspecified acquired deformity of right lower leg; M79.671 Pain in right foot; I10 Essential (primary) hypertension; F17.210 Nicotine dependence, cigarettes, uncomplicated; J44.9 Chronic obstructive pulmonary disease, unspecified; F41.9 Anxiety disorder, unspecified; K21.9 Gastro-esophageal reflux disease without esophagitis; S93.331A Other subluxation of right foot, initial encounter; X58.XXXA Exposure to other specified factors, initial encounter; Y93.89 Activity, other specified; Y92.89 Other specified places as the place of occurrence of the external cause; Y99.8 Other external cause status; Z85.46 Personal history of malignant neoplasm of prostate; Z90.3 Acquired absence of stomach [part of]; Z98.890 Other specified postprocedural states; Z79.899 Other long term (current) drug therapy; Z20.822 Contact with and (suspected) exposure to COVID-19
CPT/HCPCS: 28899; 29999; 36415; 73620; 80053; 81001; 85025; 85610; 85730; C1769; C1776; J0690; J1040; J2001; J2250; J2405; J2704; J2795; J3010; U0003; J3490

== ENCOUNTER 2022-11-30 14:55 | Inpatient (IN) | payer MEDICARE ==
[~2022-11-30] VITALS: Ht 170.2 cm; Wt 51.5 kg
[~2022-11-30 14:55] MED LIST changes: -BACITRACIN TOP OINT 1 UD PKG TOP ONE; -BUPIVACAINE 0.5% P/F INJ 10 ML VIAL ONE; -HYDROmorphone HCL 2 MG/ML VL/or syr IV PRN; -LIDOCAINE 2% (LOCAL ANESTH.) PF 5ml SDV ONE; -MIDAZOLAM HCL 2MG/2ML 2ml VIAL (1mg/ml) ONE; -ONDANSETRON HCL 4 MG/2 ML VIAL IV PRN; -ONDANSETRON HCL 4 MG/2 ML VIAL ONE; -POVIDONE IODINE 10 % TOPICAL OINT 30GM TOP ONE; -PROPOFOL 10 MG/ML 20 ML IV ONE; -ROPIVACAINE 0.5% (5MG/ML) 20ML AMPULE IJ ONE; -ceFAZolin 1GM/50ML 100 ML IV ONE; -fentaNYL CITRATE 100 MCG/2 ML VL ONE; -methylPREDNISolone ACETATE 80 MG/ML VL ONE
[2022-11-30 15:44] LABS: Basophils # (auto) 0 10 ^3/uL (0-0.2); Basophils % (auto) 0.9 % (0.0-2.0); Eosinophils # (auto) 0 10 ^3/uL (0-0.8); Hematocrit 45.7 % (41.0-53.0); Hemoglobin 14.9 g/dL (13.5-17.5); Lymphocytes # (auto) 0.3 10 ^3/uL (0.4-5.4); Lymphocytes % (auto) 9.9 % (10.0-50.0); Mean Corpuscular Hemoglobin 33.3 pg (28.0-32.0); Mean Corpuscular Hgb Conc. 32.5 g/dL (32.0-36.0); Mean Corpuscular Volume 102.4 fL (80.0-100.0); Monocytes # (auto) 0.3 10 ^3/uL (0-1.3); Monocytes % (auto) 10.3 % (0.0-12.0); Neutrophils # (auto) 2.3 10 ^3/uL (1.6-8.6); Neutrophils % (auto) 78.9 % (37.0-80.0); Nucleated Red Blood Cells % 0.3 %; Red Blood Cells 4.46 10^6/uL (4.5-5.90); Red Cell Distribution Width 14.5 % (11.8-14.3)
[2022-11-30 16:13] LABS: Albumin 3.4 g/dL (3.4-5.0); BUN/Creatinine Ratio 11.3 (10.0-20.0); Calcium 8.4 mg/dL (8.5-10.1); Potassium 4.6 mmol/L (3.5-5.1)
[2022-11-30 16:16] LABS: Bilirubin, Total 0.3 mg/dL (0.2-1.0); Total Protein 7.3 g/dL (6.4-8.2)
[2022-11-30] MEDS ORDERED: ALBUTEROL SULF 2.5 MG/0.5ML(0.5%) NEB SOLN NEB ONE (16:30)
[2022-11-30] MEDS ORDERED: guaiFENesin-DM 100/10mg/5ml SYR PO ONE (16:30)
[2022-11-30] MEDS ORDERED: FUROSEMIDE 40 MG/4 ML VIAL IV ONE (16:30)
[2022-11-30] MEDS ORDERED: IPRATROPIUM BROM 0.5 MG/2.5ML INH SOL NEB ONE (16:30)
[2022-11-30 16:43] LABS: Partial Thromboplastin Time 28.7 sec (24.6-33.4)
[2022-11-30 17:48] LABS: Urine Bacteria NONE SEEN /hpf (None Seen); Urine Blood Negative /uL (Negative); Urine Specific Gravity 1.007 (1.001-1.035); Urine WBC <1 /hpf (0 - 3)
[2022-11-30] MEDS ORDERED: traMADol HCL 50 MG TAB PO ONE (18:15)
[2022-11-30] MEDS ORDERED: ONDANSETRON HCL 4 MG/2 ML VIAL IV ONE (18:15)
[2022-11-30] MEDS ORDERED: cloNIDine HCL 0.1 MG TAB PO ONE (19:45)
[2022-11-30] MEDS ORDERED: IPRATROPIUM BROM 0.5 MG/2.5ML INH SOL NEB PRN (20:45)
[2022-11-30] MEDS ORDERED: ALBUTEROL SULF 2.5 MG/0.5ML(0.5%) NEB SOLN NEB PRN (20:45)
[2022-11-30] MEDS ORDERED: NITROGLYCERIN 0.4 MG SL TAB SL PRN (20:45)
[2022-11-30] MEDS: SACUBITRIL-VALSARTAN 24mg/26mg TAB PO SCH (21:50)
[2022-11-30] MEDS: APIXABAN 5 MG TAB PO SCH (21:50)
[2022-11-30] MEDS: ATORVASTATIN 20 MG TAB PO SCH (21:50)
[2022-11-30] MEDS: CARVEDILOL 3.125 MG TAB PO SCH (21:51)
[2022-11-30 23:00] VITALS: BP 171/102
[2022-11-30] MEDS ORDERED: LABETALOL HCL 5 MG/ML 4ML SYRINGE IV ONE (23:15)
[2022-12-01] MEDS: ONDANSETRON HCL 4 MG/2 ML VIAL IV PRN ×4 (04:43→20:14)
[2022-12-01 06:07] LABS: White Blood Cell 2.3 10^3/uL (4.4-10.8)
[2022-12-01 06:09] LABS: Hematocrit 43.1 % (41.0-53.0); Hemoglobin 14.6 g/dL (13.5-17.5); Mean Corpuscular Hemoglobin 33.8 pg (28.0-32.0); Mean Corpuscular Hgb Conc. 33.8 g/dL (32.0-36.0); Mean Corpuscular Volume 99.8 fL (80.0-100.0); Red Blood Cells 4.32 10^6/uL (4.5-5.90); Red Cell Distribution Width 14.1 % (11.8-14.3)
[2022-12-01 06:25] LABS: BUN/Creatinine Ratio 14.5 (10.0-20.0); Calcium 8.3 mg/dL (8.5-10.1); Potassium 4.6 mmol/L (3.5-5.1)
[2022-12-01 06:33] LABS: Basophils % (manual) 0 (0.0-2.0); Blast Cells 0; Eosinophils % (manual) 0 (0-7); Metamyelocytes % 0; Myelocytes % 0; Promyelocytes % 0; Reactive Lymphocytes 0
[2022-12-01 09:11] LABS: Band Neutrophils % (manual) 12; Lymphocytes % (manual) 19 (10.0-50.0); Monocytes % (manual) 16 (0-12)
[2022-12-01] MEDS: SACUBITRIL-VALSARTAN 24mg/26mg TAB PO SCH ×2 (10:00→23:08)
[2022-12-01] MEDS: FUROSEMIDE 20 MG TAB PO SCH (10:40)
[2022-12-01] MEDS: APIXABAN 5 MG TAB PO SCH ×2 (10:40→23:07)
[2022-12-01] MEDS: CARVEDILOL 3.125 MG TAB PO SCH ×2 (10:40→23:07)
[2022-12-01] MEDS: MORPHINE SULFATE INJ 2 MG/ml SYRG IV PRN ×3 (10:41→20:15)
[2022-12-01] MEDS: guaiFENesin-DM 100/10mg/5ml SYR PO PRN ×2 (10:41→20:14)
[2022-12-01] MEDS: AZITHROMYCIN 250 MG TAB PO SCH (15:14)
[2022-12-01] MEDS: ALBUTEROL SULF 2.5 MG/0.5ML(0.5%) NEB SOLN NEB SCH (19:19)
[2022-12-01] MEDS: IPRATROPIUM BROM 0.5 MG/2.5ML INH SOL NEB SCH (19:19)
[2022-12-01] MEDS: BUDESONIDE (INHALATION) 0.5 MG/2 ML NEB NEB SCH (19:21)
[2022-12-01] MEDS: ATORVASTATIN 20 MG TAB PO SCH (23:08)
[2022-12-01] MEDS: TEMAZEPAM 15 MG CAP PO PRN (23:20)
[2022-12-02] VITALS (8 sets, daily range): BP systolic 95–117; BP diastolic 64–85
[2022-12-02] MEDS: ONDANSETRON HCL 4 MG/2 ML VIAL IV PRN ×2 (03:30→22:06)
[2022-12-02] MEDS ORDERED: NITROGLYCERIN 0.4 MG SL TAB SL PRN (06:15)
[2022-12-02] MEDS ORDERED: MORPHINE SULFATE INJ 2 MG/ml SYRG IV PRN (06:15)
[2022-12-02 06:30] LABS: Basophils # (auto) 0.1 10 ^3/uL (0-0.2); Basophils % (auto) 1.2 % (0.0-2.0); Eosinophils # (auto) 0 10 ^3/uL (0-0.8); Eosinophils % (auto) 0.6 % (0.0-7.0); Hematocrit 48.6 % (41.0-53.0); Hemoglobin 16.6 g/dL (13.5-17.5); Lymphocytes # (auto) 1.4 10 ^3/uL (0.4-5.4); Lymphocytes % (auto) 29.4 % (10.0-50.0); Mean Corpuscular Hemoglobin 33.8 pg (28.0-32.0); Mean Corpuscular Hgb Conc. 34.1 g/dL (32.0-36.0); Mean Corpuscular Volume 99.3 fL (80.0-100.0); Monocytes # (auto) 0.8 10 ^3/uL (0-1.3); Monocytes % (auto) 17.6 % (0.0-12.0); Neutrophils # (auto) 2.4 10 ^3/uL (1.6-8.6); Neutrophils % (auto) 51.2 % (37.0-80.0); Nucleated Red Blood Cells % 0.3 %; Red Blood Cells 4.89 10^6/uL (4.5-5.90); White Blood Cell 4.7 10^3/uL (4.4-10.8)
[2022-12-02] MEDS: ALBUTEROL SULF 2.5 MG/0.5ML(0.5%) NEB SOLN NEB SCH ×4 (06:30→19:03)
[2022-12-02] MEDS: IPRATROPIUM BROM 0.5 MG/2.5ML INH SOL NEB SCH ×4 (06:30→19:03)
[2022-12-02] MEDS: BUDESONIDE (INHALATION) 0.5 MG/2 ML NEB NEB SCH ×2 (06:30→19:03)
[2022-12-02 06:48] LABS: BUN/Creatinine Ratio 21.3 (10.0-20.0); Calcium 8.3 mg/dL (8.5-10.1); Potassium 4.4 mmol/L (3.5-5.1)
[2022-12-02] MEDS: AZITHROMYCIN 250 MG TAB PO SCH (10:17)
[2022-12-02] MEDS: SACUBITRIL-VALSARTAN 24mg/26mg TAB PO SCH ×2 (10:18→22:06)
[2022-12-02] MEDS: APIXABAN 5 MG TAB PO SCH ×2 (10:19→22:07)
[2022-12-02] MEDS: CARVEDILOL 3.125 MG TAB PO SCH ×2 (10:19→22:07)
[2022-12-02] MEDS: FUROSEMIDE 20 MG TAB PO SCH (10:20)
[2022-12-02] MEDS: methylPREDNISolone SOD SUCC 40 MG/ML VL IV SCH ×2 (11:19→22:06)
[2022-12-02] MEDS ORDERED: KETOROLAC TROMETH 30 MG/ML 1ML VIAL IV ONE (13:45)
[2022-12-02] MEDS: KETOROLAC TROMETH 30 MG/ML 1ML VIAL IV PRN (20:27)
[2022-12-02] MEDS: ATORVASTATIN 20 MG TAB PO SCH (22:07)
[2022-12-02] MEDS: TEMAZEPAM 15 MG CAP PO PRN (23:21)
[2022-12-03] VITALS (8 sets, daily range): BP systolic 101–131; BP diastolic 70–81
[2022-12-03] MEDS: IPRATROPIUM BROM 0.5 MG/2.5ML INH SOL NEB SCH ×4 (00:54→18:52)
[2022-12-03] MEDS: ALBUTEROL SULF 2.5 MG/0.5ML(0.5%) NEB SOLN NEB SCH ×4 (00:54→18:52)
[2022-12-03] MEDS: ONDANSETRON HCL 4 MG/2 ML VIAL IV PRN ×3 (03:46→23:40)
[2022-12-03] MEDS: KETOROLAC TROMETH 30 MG/ML 1ML VIAL IV PRN ×2 (03:46→10:27)
[2022-12-03] MEDS ORDERED: KETOROLAC TROMETH 30 MG/ML 1ML VIAL IV PRN ×3 (06:15→10:15)
[2022-12-03] MEDS: BUDESONIDE (INHALATION) 0.5 MG/2 ML NEB NEB SCH ×2 (06:18→18:52)
[2022-12-03] MEDS: SACUBITRIL-VALSARTAN 24mg/26mg TAB PO SCH ×2 (09:36→22:24)
[2022-12-03] MEDS: CARVEDILOL 3.125 MG TAB PO SCH ×2 (09:37→22:24)
[2022-12-03] MEDS: APIXABAN 5 MG TAB PO SCH ×2 (09:37→22:24)
[2022-12-03] MEDS: methylPREDNISolone SOD SUCC 40 MG/ML VL IV SCH (09:37)
[2022-12-03] MEDS: FUROSEMIDE 20 MG TAB PO SCH (09:37)
[2022-12-03] MEDS: AZITHROMYCIN 250 MG TAB PO SCH (09:42)
[2022-12-03] MEDS: ACETAMINOPHEN 325 MG TAB PO PRN (20:05)
[2022-12-03] MEDS: ATORVASTATIN 20 MG TAB PO SCH (22:24)
[2022-12-03] MEDS: MORPHINE SULFATE INJ 2 MG/ml SYRG IV PRN (22:25)
[2022-12-03] MEDS: TEMAZEPAM 15 MG CAP PO PRN (23:40)
[2022-12-04] VITALS (7 sets, daily range): BP systolic 100–131; BP diastolic 45–84
[2022-12-04] MEDS: ALBUTEROL SULF 2.5 MG/0.5ML(0.5%) NEB SOLN NEB SCH ×5 (00:36→23:44)
[2022-12-04] MEDS: IPRATROPIUM BROM 0.5 MG/2.5ML INH SOL NEB SCH ×5 (00:37→23:44)
[2022-12-04] MEDS: ONDANSETRON HCL 4 MG/2 ML VIAL IV PRN ×2 (05:49→14:37)
[2022-12-04] MEDS: MORPHINE SULFATE INJ 2 MG/ml SYRG IV PRN ×2 (05:50→18:15)
[2022-12-04] MEDS: BUDESONIDE (INHALATION) 0.5 MG/2 ML NEB NEB SCH ×2 (06:21→18:37)
[2022-12-04] MEDS: SACUBITRIL-VALSARTAN 24mg/26mg TAB PO SCH ×2 (09:42→22:28)
[2022-12-04] MEDS: CARVEDILOL 3.125 MG TAB PO SCH ×2 (09:42→22:30)
[2022-12-04] MEDS: AZITHROMYCIN 250 MG TAB PO SCH (09:43)
[2022-12-04] MEDS: methylPREDNISolone SOD SUCC 40 MG/ML VL IV SCH (09:43)
[2022-12-04] MEDS: APIXABAN 5 MG TAB PO SCH (09:45)
[2022-12-04] MEDS: FUROSEMIDE 20 MG TAB PO SCH (09:45)
[2022-12-04] MEDS: POLYETHYLENE GLYCOL 17 GM PWDR PO PRN (14:34)
[2022-12-04] MEDS: guaiFENesin-DM 100/10mg/5ml SYR PO PRN (14:36)
[2022-12-04] MEDS: ATORVASTATIN 20 MG TAB PO SCH (22:28)
[2022-12-05] VITALS (14 sets, daily range): BP systolic 102–145; BP diastolic 66–91
[2022-12-05] MEDS: MORPHINE SULFATE INJ 2 MG/ml SYRG IV PRN ×3 (00:22→20:52)
[2022-12-05] MEDS: IPRATROPIUM BROM 0.5 MG/2.5ML INH SOL NEB SCH ×4 (06:24→22:04)
[2022-12-05] MEDS: ALBUTEROL SULF 2.5 MG/0.5ML(0.5%) NEB SOLN NEB SCH ×4 (06:24→22:04)
[2022-12-05 06:31] LABS: Basophils # (auto) 0 10 ^3/uL (0-0.2); Basophils % (auto) 0.3 % (0.0-2.0); Eosinophils # (auto) 0 10 ^3/uL (0-0.8); Lymphocytes # (auto) 2.2 10 ^3/uL (0.4-5.4); Monocytes # (auto) 0.5 10 ^3/uL (0-1.3); Neutrophils # (auto) 4.3 10 ^3/uL (1.6-8.6); Nucleated Red Blood Cells % 0.2 %
[2022-12-05 06:33] LABS: Eosinophils % (auto) 0.5 % (0.0-7.0); Hematocrit 45.6 % (41.0-53.0); Hemoglobin 15.1 g/dL (13.5-17.5); Lymphocytes % (auto) 31.1 % (10.0-50.0); Mean Corpuscular Hemoglobin 33.8 pg (28.0-32.0); Mean Corpuscular Hgb Conc. 33.2 g/dL (32.0-36.0); Mean Corpuscular Volume 101.9 fL (80.0-100.0); Monocytes % (auto) 7.3 % (0.0-12.0); Neutrophils % (auto) 60.8 % (37.0-80.0); Red Blood Cells 4.48 10^6/uL (4.5-5.90); Red Cell Distribution Width 14.3 % (11.8-14.3)
[2022-12-05] MEDS: BUPIVACAINE HCL 0.25% P/F 10 ML VIAL ONE ×2 (06:40→07:58)
[2022-12-05] MEDS: LIDOCAINE W/ EPINEPHRINE 1% 20ML VIAL ONE ×2 (06:40→07:58)
[2022-12-05] MEDS: BUPIVACAINE IMPLANT 3x100mg IL ONE ×2 (06:45→08:15)
[2022-12-05 06:48] LABS: INR 1.08 (0.9-1.15); Partial Thromboplastin Time 28.8 sec (24.6-33.4)
[2022-12-05 06:58] LABS: BUN/Creatinine Ratio 34.3 (10.0-20.0); Potassium 4.1 mmol/L (3.5-5.1)
[2022-12-05 06:59] LABS: Calcium 7.9 mg/dL (8.5-10.1)
[2022-12-05] MEDS ORDERED: ceFAZolin 1GM/50ML 50 ML IV ONE (07:05)
[2022-12-05] MEDS ORDERED: fentaNYL CITRATE 100 MCG/2 ML VL ONE (07:39)
[2022-12-05] MEDS ORDERED: MEPERIDINE HCL (50 MG/ML) 1 ML VIAL ONE (07:39)
[2022-12-05] MEDS ORDERED: MIDAZOLAM HCL 2MG/2ML 2ml VIAL (1mg/ml) ONE (07:39)
[2022-12-05] MEDS ORDERED: DexAMETHasone SOD PHOS 10MG/1ML VIAL INJ ONE (08:08)
[2022-12-05] MEDS ORDERED: ALBUTEROL SULF 2.5 MG/0.5ML(0.5%) NEB SOLN NEB ONE ×2 (08:45→09:00)
[2022-12-05] MEDS ORDERED: IPRATROPIUM BROM 0.5 MG/2.5ML INH SOL NEB ONE ×2 (08:45→09:00)
[2022-12-05] MEDS ORDERED: MIDAZOLAM HCL 2MG/2ML 2ml VIAL (1mg/ml) IV PRN (09:00)
[2022-12-05] MEDS ORDERED: MORPHINE SULFATE INJ 2 MG/ml SYRG IV PRN (09:00)
[2022-12-05] MEDS ORDERED: LABETALOL HCL 5 MG/ML 4ML SYRINGE IV PRN (09:00)
[2022-12-05] MEDS ORDERED: ePHEDrine SULFATE 50 MG/ML AMP IV PRN (09:00)
[2022-12-05] MEDS ORDERED: ONDANSETRON HCL 4 MG/2 ML VIAL IV PRN (09:00)
[2022-12-05] MEDS ORDERED: MAGNESIUM SULFATE 1GM/100ML 100 ML IV ONE (09:15)
[2022-12-05] MEDS ORDERED: PROPOFOL 10 MG/ML 20 ML IV ONE (09:36)
[2022-12-05] MEDS: BUDESONIDE (INHALATION) 0.5 MG/2 ML NEB NEB SCH ×2 (10:16→22:04)
[2022-12-05] MEDS: CARVEDILOL 3.125 MG TAB PO SCH ×2 (11:33→22:29)
[2022-12-05] MEDS: methylPREDNISolone SOD SUCC 40 MG/ML VL IV SCH (11:34)
[2022-12-05] MEDS: PANTOPRAZOLE 40 MG TAB PO SCH (11:34)
[2022-12-05] MEDS: SACUBITRIL-VALSARTAN 24mg/26mg TAB PO SCH ×2 (11:34→22:27)
[2022-12-05] MEDS ORDERED: ALBUTEROL SULF 2.5 MG/0.5ML(0.5%) NEB SOLN NEB SCH (12:00)
[2022-12-05] MEDS ORDERED: IPRATROPIUM BROM 0.5 MG/2.5ML INH SOL NEB SCH (12:00)
[2022-12-05] MEDS: Ensure Enlive Strawberry 8oz Bottle PO SCH (18:15)
[2022-12-05] MEDS: ONDANSETRON HCL 4 MG/2 ML VIAL IV PRN (20:51)
[2022-12-05] MEDS: ATORVASTATIN 20 MG TAB PO SCH (22:28)
[2022-12-05] MEDS: TEMAZEPAM 15 MG CAP PO PRN ×2 (22:29)
[2022-12-05] MEDS: guaiFENesin-DM 100/10mg/5ml SYR PO PRN (22:30)
[2022-12-06] VITALS (11 sets, daily range): BP systolic 104–137; BP diastolic 68–94
[2022-12-06] MEDS: ALBUTEROL SULF 2.5 MG/0.5ML(0.5%) NEB SOLN NEB SCH ×6 (02:00→22:45)
[2022-12-06] MEDS: IPRATROPIUM BROM 0.5 MG/2.5ML INH SOL NEB SCH ×6 (02:00→22:45)
[2022-12-06] MEDS: ONDANSETRON HCL 4 MG/2 ML VIAL IV PRN ×4 (03:23→22:17)
[2022-12-06] MEDS: MORPHINE SULFATE INJ 2 MG/ml SYRG IV PRN ×4 (03:25→22:25)
[2022-12-06] MEDS: Ensure Enlive Strawberry 8oz Bottle PO SCH ×3 (08:00→18:31)
[2022-12-06] MEDS: BUDESONIDE (INHALATION) 0.5 MG/2 ML NEB NEB SCH ×2 (09:42→22:45)
[2022-12-06] MEDS: SACUBITRIL-VALSARTAN 24mg/26mg TAB PO SCH ×2 (09:44→22:00)
[2022-12-06] MEDS: PANTOPRAZOLE 40 MG TAB PO SCH (09:44)
[2022-12-06] MEDS: methylPREDNISolone SOD SUCC 40 MG/ML VL IV SCH (09:44)
[2022-12-06] MEDS: CARVEDILOL 3.125 MG TAB PO SCH ×2 (09:45→22:17)
[2022-12-06] MEDS: POLYETHYLENE GLYCOL 17 GM PWDR PO PRN (09:49)
[2022-12-06] MEDS: ACETAMINOPHEN 325 MG TAB PO PRN (14:32)
[2022-12-06] MEDS: ATORVASTATIN 20 MG TAB PO SCH (22:16)
[2022-12-06] MEDS: guaiFENesin-DM 100/10mg/5ml SYR PO PRN (23:54)
[2022-12-06] MEDS: TEMAZEPAM 15 MG CAP PO PRN (23:54)
[2022-12-07] MEDS: ALBUTEROL SULF 2.5 MG/0.5ML(0.5%) NEB SOLN NEB SCH ×7 (02:00→23:18)
[2022-12-07] MEDS: IPRATROPIUM BROM 0.5 MG/2.5ML INH SOL NEB SCH ×7 (02:00→23:19)
[2022-12-07 05:00] VITALS: BP 112/80
[2022-12-07 05:40] LABS: Basophils # (auto) 0 10 ^3/uL (0-0.2); Basophils % (auto) 0.1 % (0.0-2.0); Eosinophils # (auto) 0.1 10 ^3/uL (0-0.8); Eosinophils % (auto) 0.8 % (0.0-7.0); Hemoglobin 12.8 g/dL (13.5-17.5); Lymphocytes # (auto) 1.6 10 ^3/uL (0.4-5.4); Lymphocytes % (auto) 23.3 % (10.0-50.0); Mean Corpuscular Hemoglobin 33.5 pg (28.0-32.0); Mean Corpuscular Hgb Conc. 33.8 g/dL (32.0-36.0); Monocytes # (auto) 0.5 10 ^3/uL (0-1.3); Monocytes % (auto) 7.6 % (0.0-12.0); Neutrophils # (auto) 4.8 10 ^3/uL (1.6-8.6); Neutrophils % (auto) 68.2 % (37.0-80.0); Red Blood Cells 3.84 10^6/uL (4.5-5.90); Red Cell Distribution Width 13.7 % (11.8-14.3); White Blood Cell 7.1 10^3/uL (4.4-10.8)
[2022-12-07 05:49] LABS: BUN/Creatinine Ratio 27.2 (10.0-20.0); Calcium 8.4 mg/dL (8.5-10.1); Potassium 4.4 mmol/L (3.5-5.1)
[2022-12-07] MEDS: MORPHINE SULFATE INJ 2 MG/ml SYRG IV PRN ×3 (05:59→18:19)
[2022-12-07 08:34] VITALS: BP 133/87
[2022-12-07] MEDS: methylPREDNISolone SOD SUCC 40 MG/ML VL IV SCH (09:33)
[2022-12-07] MEDS: SACUBITRIL-VALSARTAN 24mg/26mg TAB PO SCH ×2 (09:34→22:04)
[2022-12-07] MEDS: PANTOPRAZOLE 40 MG TAB PO SCH (09:34)
[2022-12-07] MEDS: CARVEDILOL 3.125 MG TAB PO SCH ×2 (09:34→22:03)
[2022-12-07] MEDS: BUDESONIDE (INHALATION) 0.5 MG/2 ML NEB NEB SCH ×2 (09:41→23:19)
[2022-12-07] MEDS: POLYETHYLENE GLYCOL 17 GM PWDR PO PRN (09:42)
[2022-12-07] MEDS: Ensure Enlive Strawberry 8oz Bottle PO SCH ×3 (09:46→18:41)
[2022-12-07] MEDS: ONDANSETRON HCL 4 MG/2 ML VIAL IV PRN ×2 (12:11→18:18)
[2022-12-07 12:18] VITALS: BP 131/86
[2022-12-07] MEDS: guaiFENesin-DM 100/10mg/5ml SYR PO PRN (15:53)
[2022-12-07 16:46] VITALS: BP 109/72
[2022-12-07 22:00] VITALS: BP 124/78
[2022-12-07] MEDS: ATORVASTATIN 20 MG TAB PO SCH (22:05)
[2022-12-07] MEDS: DOCUSATE SOD 100 MG CAP PO SCH (22:16)
[2022-12-08] MEDS: MORPHINE SULFATE INJ 2 MG/ml SYRG IV PRN ×3 (01:15→11:55)
[2022-12-08] MEDS: ONDANSETRON HCL 4 MG/2 ML VIAL IV PRN ×2 (01:16→08:41)
[2022-12-08] MEDS: ALBUTEROL SULF 2.5 MG/0.5ML(0.5%) NEB SOLN NEB SCH ×4 (03:04→14:49)
[2022-12-08] MEDS: IPRATROPIUM BROM 0.5 MG/2.5ML INH SOL NEB SCH ×4 (03:04→14:50)
[2022-12-08 05:00] VITALS: BP 156/91
[2022-12-08 06:00] VITALS: BP 141/95
[2022-12-08 06:03] LABS: Basophils # (auto) 0 10 ^3/uL (0-0.2); Basophils % (auto) 0.1 % (0.0-2.0); Eosinophils # (auto) 0.1 10 ^3/uL (0-0.8); Eosinophils % (auto) 1.9 % (0.0-7.0); Hematocrit 38.3 % (41.0-53.0); Hemoglobin 12.9 g/dL (13.5-17.5); Lymphocytes # (auto) 1.9 10 ^3/uL (0.4-5.4); Lymphocytes % (auto) 28.1 % (10.0-50.0); Mean Corpuscular Hemoglobin 34.1 pg (28.0-32.0); Mean Corpuscular Hgb Conc. 33.6 g/dL (32.0-36.0); Mean Corpuscular Volume 101.5 fL (80.0-100.0); Monocytes # (auto) 0.6 10 ^3/uL (0-1.3); Monocytes % (auto) 8.8 % (0.0-12.0); Neutrophils # (auto) 4.2 10 ^3/uL (1.6-8.6); Neutrophils % (auto) 61.1 % (37.0-80.0); Red Blood Cells 3.78 10^6/uL (4.5-5.90); Red Cell Distribution Width 13.9 % (11.8-14.3); White Blood Cell 6.9 10^3/uL (4.4-10.8)
[2022-12-08 06:22] LABS: Calcium 8.5 mg/dL (8.5-10.1); Potassium 4.2 mmol/L (3.5-5.1)
[2022-12-08] MEDS: BUDESONIDE (INHALATION) 0.5 MG/2 ML NEB NEB SCH (06:25)
[2022-12-08 09:00] VITALS: BP 150/96
[2022-12-08] MEDS: POLYETHYLENE GLYCOL 17 GM PWDR PO PRN (10:34)
[2022-12-08] MEDS: DOCUSATE SOD 100 MG CAP PO SCH (10:34)
[2022-12-08] MEDS: methylPREDNISolone SOD SUCC 40 MG/ML VL IV SCH (10:35)
[2022-12-08] MEDS: PANTOPRAZOLE 40 MG TAB PO SCH (10:35)
[2022-12-08] MEDS: SACUBITRIL-VALSARTAN 24mg/26mg TAB PO SCH (10:36)
[2022-12-08] MEDS: CARVEDILOL 3.125 MG TAB PO SCH (10:37)
[2022-12-08] MEDS ORDERED: HYDROcodone-ACET 5/325MG TAB PO PRN (12:15)
[2022-12-08] MEDS ORDERED: GUAI100S6 PO (12:52)
[2022-12-08] MEDS ORDERED: GUAI600T23 PO (12:53)
[2022-12-08] MEDS ORDERED: LEVO500T31 PO (12:53)
[2022-12-08] MEDS ORDERED: HYDR25TA87 PO (12:53)
[2022-12-08] MEDS ORDERED: BUDE1AER4 IN (12:53)
[2022-12-08] MEDS ORDERED: ALBU1.257 IN (12:53)
[2022-12-08] MEDS ORDERED: DOCU-94 PO (12:53)
[2022-12-08] MEDS ORDERED: HYDR-4902 PO (12:53)
[2022-12-08 13:00] VITALS: BP 144/87
[2022-12-08] MEDS ORDERED: NEBU1MIS24 XX (13:00)
[2022-12-08] MEDS: LACTULOSE 20Gm/30ML SOLN PO SCH ×2 (13:52→18:00)
[2022-12-08] MEDS: Ensure Enlive Strawberry 8oz Bottle PO SCH ×3 (14:47→18:38)
[2022-12-08 15:44] VITALS: BP 144/87
[2022-12-08 17:00] VITALS: BP 110/74
== END 2022-12-08 18:47 | disposition home or self-care (01) | DRG 987 ==
LOC: EDBD 14:55 → ER 14:55 → TELE 20:40 → TELE-WESTW 12-02 02:42 → WEST WING 12-02 02:43 → TELE-WESTW 12-02 06:21 → ICU WEST 12-05 09:30 → TELE-EAST 12-06 08:32
PROVIDERS: ADMIT Nurse Practitioner; ATTEND Nurse Practitioner Acute Care
PROC: 0YQ50ZZ Repair Right Inguinal Region, Open Approach (ICD-10-PCS; principal; 2022-12-05 07:41)
DX: J96.21 Acute and chronic respiratory failure with hypoxia (principal); J15.6 Pneumonia due to other Gram-negative bacteria; D68.9 Coagulation defect, unspecified; J44.1 Chronic obstructive pulmonary disease with (acute) exacerbation; I27.82 Chronic pulmonary embolism; I50.22 Chronic systolic (congestive) heart failure; K40.90 Unilateral inguinal hernia, without obstruction or gangrene, not specified as recurrent; Z20.822 Contact with and (suspected) exposure to COVID-19; E78.5 Hyperlipidemia, unspecified; F17.210 Nicotine dependence, cigarettes, uncomplicated; Z79.51 Long term (current) use of inhaled steroids
CPT/HCPCS: 36415; 36600; 71045; 80048; 80053; 81001; 82805; 83880; 84484; 85007; 85025; 85027; 85379; 85610; 85730; 86850; 86900; 86901; 87081; 87426; 87804; 93005; 93306; 94640; G0378; J0690; J1100; J1885; J2250; J2405; J2704; J3490

== ENCOUNTER 2023-01-14 14:17 | Inpatient (IN) | payer MEDICARE ==
[~2023-01-14] VITALS: Ht 172.7 cm; Wt 46.8 kg
[~2023-01-14 14:17] MED LIST changes: +ALBU1.257 IN; +BUDE1AER4 IN; +DOCU-94 PO; +GUAI100S6 PO; +GUAI600T23 PO; +HYDR-4902 PO; +HYDR25TA87 PO; +LEVO500T31 PO; +NEBU1MIS24 XX
[2023-01-14] MEDS ORDERED: DexAMETHasone SOD PHOS 10MG/1ML VIAL INJ IV ONE (14:45)
[2023-01-14] MEDS ORDERED: IPRATROPIUM BROM 0.5 MG/2.5ML INH SOL HHN ONE (14:45)
[2023-01-14] MEDS ORDERED: ALBUTEROL SULF 2.5 MG/0.5ML(0.5%) NEB SOLN HHN ONE (14:45)
[2023-01-14] MEDS ORDERED: cefTRIAXone 1GM/50ML D5W 50 ML IV ONE (15:00)
[2023-01-14] MEDS ORDERED: AZITHROMYCIN 500MG/ 250ML 250 ML IV ONE (15:30)
[2023-01-14 15:36] LABS: Albumin 3.9 g/dL (3.4-5.0); Calcium 8.8 mg/dL (8.5-10.1); Potassium 4.2 mmol/L (3.5-5.1)
[2023-01-14 15:39] LABS: BUN/Creatinine Ratio 14.7 (10.0-20.0)
[2023-01-14 15:40] LABS: Bilirubin, Total 0.6 mg/dL (0.2-1.0)
[2023-01-14 16:28] LABS: Lactic Acid w/Reflex 2.8 mmol/L (0.4-2.0)
[2023-01-14 16:32] LABS: Eosinophils # (auto) 0.2 10 ^3/uL (0-0.8); Lymphocytes # (auto) 1.3 10 ^3/uL (0.4-5.4); Monocytes # (auto) 0.6 10 ^3/uL (0-1.3); Neutrophils # (auto) 3.3 10 ^3/uL (1.6-8.6); Nucleated Red Blood Cells % 0.1 %
[2023-01-14 16:36] LABS: Basophils # (auto) 0.1 10 ^3/uL (0-0.2); Eosinophils % (auto) 3.3 % (0.0-7.0); Hematocrit 48.1 % (41.0-53.0); Hemoglobin 15.9 g/dL (13.5-17.5); Lymphocytes % (auto) 23.6 % (10.0-50.0); Mean Corpuscular Hemoglobin 33.7 pg (28.0-32.0); Mean Corpuscular Hgb Conc. 33.1 g/dL (32.0-36.0); Mean Corpuscular Volume 101.7 fL (80.0-100.0); Monocytes % (auto) 10.4 % (0.0-12.0); Neutrophils % (auto) 61.7 % (37.0-80.0); Red Blood Cells 4.73 10^6/uL (4.5-5.90); Red Cell Distribution Width 14.5 % (11.8-14.3); White Blood Cell 5.4 10^3/uL (4.4-10.8)
[2023-01-14 17:56] LABS: Urine Bacteria NONE SEEN /hpf (None Seen); Urine Blood Negative /uL (Negative); Urine Mucus FEW (None Seen); Urine Specific Gravity 1.045 (1.001-1.035); Urine WBC 5 /hpf (0 - 3)
[2023-01-14] MEDS ORDERED: MORPHINE SULFATE INJ 2 MG/ml SYRG IV ONE (20:30)
[2023-01-14] MEDS ORDERED: ASPirin 325 MG TAB PO ONE (21:00)
[2023-01-14 21:43] VITALS: BP 116/84
[2023-01-14] MEDS ORDERED: IPRATROPIUM BROM 0.5 MG/2.5ML INH SOL NEB PRN (21:45)
[2023-01-14] MEDS ORDERED: ACETAMINOPHEN 325 MG TAB PO PRN (21:45)
[2023-01-14] MEDS ORDERED: ALBUTEROL SULF 2.5 MG/0.5ML(0.5%) NEB SOLN NEB PRN (21:45)
[2023-01-14] MEDS ORDERED: NITROGLYCERIN 0.4 MG SL TAB SL PRN (21:45)
[2023-01-14] MEDS ORDERED: MORPHINE SULFATE INJ 2 MG/ml SYRG IV PRN (21:45)
[2023-01-14] MEDS ORDERED: hydrALAZINE HCL 20 MG/ML VL IV PRN (21:45)
[2023-01-14] MEDS ORDERED: ENOXAPARIN SOD 40 MG/0.4 ML SYRINGE SC SCH (21:45)
[2023-01-14] MEDS: SACUBITRIL-VALSARTAN 24mg/26mg TAB PO SCH (22:00)
[2023-01-14] MEDS: CARVEDILOL 3.125 MG TAB PO SCH (22:00)
[2023-01-14] MEDS: DOCUSATE SOD 100 MG CAP PO SCH (22:21)
[2023-01-14] MEDS: ATORVASTATIN 20 MG TAB PO SCH (22:21)
[2023-01-14] MEDS: methylPREDNISolone SOD SUCC 125 MG/2 ML VL IV SCH (22:24)
[2023-01-14 22:56] LABS: INR 1.05 (0.9-1.15); Partial Thromboplastin Time 29.9 sec (24.6-33.4)
[2023-01-14] MEDS ORDERED: guaiFENesin-CODEINE Liq 5 ML UD PO ONE (23:00)
[2023-01-14 23:09] LABS: Lactic Acid w/Reflex 4.7 mmol/L (0.4-2.0)
[2023-01-14] MEDS: IPRATROPIUM BROM 0.5 MG/2.5ML INH SOL NEB SCH (23:52)
[2023-01-14] MEDS: ALBUTEROL SULF 2.5 MG/0.5ML(0.5%) NEB SOLN NEB SCH (23:52)
[2023-01-14 23:54] LABS: Alcohol, Urine < 3.0 mg/dL (0-10); Amphetamine Screen, Urine NEGATIVE (NEGATIVE); Barbiturate Scree,Urine NEGATIVE (NEGATIVE); Benzodiazephine Screen, Urine NEGATIVE (NEGATIVE); Cannabinoid Screen, Urine NEGATIVE (NEGATIVE); Cocaine Screen, Urine NEGATIVE (NEGATIVE); Opiate Scree,Urine POSITIVE (NEGATIVE); Phencyclidine Screen, Urine NEGATIVE (NEGATIVE)
[2023-01-15] MEDS: HYDROcodone-ACET 5/325MG TAB PO PRN ×3 (02:48→23:14)
[2023-01-15 05:41] LABS: Basophils # (auto) 0 10 ^3/uL (0-0.2); Basophils % (auto) 0.4 % (0.0-2.0); Eosinophils # (auto) 0 10 ^3/uL (0-0.8); Eosinophils % (auto) 0.1 % (0.0-7.0); Hematocrit 42.2 % (41.0-53.0); Hemoglobin 14.1 g/dL (13.5-17.5); Lymphocytes # (auto) 0.7 10 ^3/uL (0.4-5.4); Lymphocytes % (auto) 17.7 % (10.0-50.0); Mean Corpuscular Hemoglobin 33.3 pg (28.0-32.0); Mean Corpuscular Hgb Conc. 33.4 g/dL (32.0-36.0); Mean Corpuscular Volume 99.6 fL (80.0-100.0); Monocytes # (auto) 0.1 10 ^3/uL (0-1.3); Monocytes % (auto) 1.7 % (0.0-12.0); Neutrophils % (auto) 80.1 % (37.0-80.0); Red Blood Cells 4.23 10^6/uL (4.5-5.90); Red Cell Distribution Width 14.1 % (11.8-14.3); White Blood Cell 3.8 10^3/uL (4.4-10.8)
[2023-01-15] MEDS: IPRATROPIUM BROM 0.5 MG/2.5ML INH SOL NEB SCH ×3 (06:38→17:57)
[2023-01-15] MEDS: ALBUTEROL SULF 2.5 MG/0.5ML(0.5%) NEB SOLN NEB SCH ×3 (06:38→17:57)
[2023-01-15 06:40] LABS: Potassium 4.1 mmol/L (3.5-5.1)
[2023-01-15 06:50] LABS: Albumin 3.2 g/dL (3.4-5.0); BUN/Creatinine Ratio 19.8 (10.0-20.0); Bilirubin, Total 0.4 mg/dL (0.2-1.0); Calcium 8.3 mg/dL (8.5-10.1)
[2023-01-15] MEDS ORDERED: IOHEXOL 350 MG/ML 100ML IJ ONE (07:59)
[2023-01-15] MEDS ORDERED: HEPARIN SODIUM (PORCINE) 5000 UNITS/ML 1ML VIAL IV ONE (09:00)
[2023-01-15] MEDS ORDERED: HEPARIN DRIP/D5W 100UNITS/ML 250 ML IV SCH ×2 (09:00→20:40)
[2023-01-15 09:27] LABS: INR 1.05 (0.9-1.15); Partial Thromboplastin Time 30.6 sec (24.6-33.4)
[2023-01-15] MEDS: SACUBITRIL-VALSARTAN 24mg/26mg TAB PO SCH ×2 (10:00→22:23)
[2023-01-15] MEDS ORDERED: FUROSEMIDE 20 MG/2 ML VIAL IV SCH (10:00)
[2023-01-15] MEDS: methylPREDNISolone SOD SUCC 125 MG/2 ML VL IV SCH (10:01)
[2023-01-15] MEDS: ASPirin 81 mg TAB PO SCH (10:02)
[2023-01-15] MEDS: PANTOPRAZOLE 40 MG/10 ML VIAL INJ IV SCH (10:02)
[2023-01-15] MEDS: DOCUSATE SOD 100 MG CAP PO SCH ×2 (10:02→22:23)
[2023-01-15] MEDS: POTASSIUM CHLORIDE 8 MEQ TAB PO SCH (10:03)
[2023-01-15] MEDS: CARVEDILOL 3.125 MG TAB PO SCH ×2 (10:03→22:24)
[2023-01-15] MEDS: CHOLECALCIFEROL (VITD3) 2,000 UNIT CAP/TAB PO SCH (10:04)
[2023-01-15] MEDS: NICOTINE 14 MG/24HR TOPICAL PATCH TD SCH (10:05)
[2023-01-15] MEDS: FUROSEMIDE 40 MG/4 ML VIAL IV SCH (14:45)
[2023-01-15 17:00] VITALS: BP 115/83
[2023-01-15] MEDS: MORPHINE SULFATE INJ 2 MG/ml SYRG IV PRN (17:25)
[2023-01-15 18:27] VITALS: BP_SYST 115; BP_SYST 89; BP_DIAS 59; BP_DIAS 83
[2023-01-15 18:51] LABS: INR 1.09 (0.9-1.15)
[2023-01-15 19:34] LABS: Partial Thromboplastin Time 114.7 sec (24.6-33.4)
[2023-01-15 22:15] VITALS: BP_SYST 118; BP_SYST 96; BP_DIAS 61; BP_DIAS 74
[2023-01-15] MEDS: ATORVASTATIN 20 MG TAB PO SCH (22:23)
[2023-01-16] MEDS: IPRATROPIUM BROM 0.5 MG/2.5ML INH SOL NEB SCH ×4 (00:09→18:46)
[2023-01-16] MEDS: ALBUTEROL SULF 2.5 MG/0.5ML(0.5%) NEB SOLN NEB SCH ×4 (00:10→18:46)
[2023-01-16] MEDS: MORPHINE SULFATE INJ 2 MG/ml SYRG IV PRN ×3 (02:32→22:43)
[2023-01-16 03:03] LABS: INR 1.09 (0.9-1.15); Partial Thromboplastin Time 50.1 sec (24.6-33.4)
[2023-01-16 05:00] VITALS: BP 91/67
[2023-01-16 06:15] LABS: Basophils # (auto) 0.1 10 ^3/uL (0-0.2); Basophils % (auto) 1.3 % (0.0-2.0); Eosinophils # (auto) 0.2 10 ^3/uL (0-0.8); Eosinophils % (auto) 1.8 % (0.0-7.0); Hematocrit 41.2 % (41.0-53.0); Hemoglobin 13.5 g/dL (13.5-17.5); Lymphocytes # (auto) 2.5 10 ^3/uL (0.4-5.4); Lymphocytes % (auto) 29.6 % (10.0-50.0); Mean Corpuscular Hemoglobin 32.9 pg (28.0-32.0); Mean Corpuscular Hgb Conc. 32.8 g/dL (32.0-36.0); Mean Corpuscular Volume 100.1 fL (80.0-100.0); Monocytes # (auto) 0.5 10 ^3/uL (0-1.3); Monocytes % (auto) 5.9 % (0.0-12.0); Neutrophils # (auto) 5.1 10 ^3/uL (1.6-8.6); Neutrophils % (auto) 61.4 % (37.0-80.0); Nucleated Red Blood Cells % 0.1 %; Red Blood Cells 4.12 10^6/uL (4.5-5.90); Red Cell Distribution Width 13.6 % (11.8-14.3); White Blood Cell 8.4 10^3/uL (4.4-10.8)
[2023-01-16 06:20] VITALS: BP 103/70
[2023-01-16 06:32] LABS: Albumin 2.9 g/dL (3.4-5.0); BUN/Creatinine Ratio 25.3 (10.0-20.0); Calcium 8.2 mg/dL (8.5-10.1); Potassium 3.4 mmol/L (3.5-5.1)
[2023-01-16 06:35] LABS: Bilirubin, Total 0.2 mg/dL (0.2-1.0)
[2023-01-16 09:00] VITALS: BP 100/74
[2023-01-16 10:00] LABS: INR 1.09 (0.9-1.15)
[2023-01-16] MEDS: FUROSEMIDE 40 MG/4 ML VIAL IV SCH (10:00)
[2023-01-16] MEDS: CARVEDILOL 3.125 MG TAB PO SCH ×2 (10:00→22:00)
[2023-01-16] MEDS: ASPirin 81 mg TAB PO SCH (10:32)
[2023-01-16] MEDS: DOCUSATE SOD 100 MG CAP PO SCH ×2 (10:32→22:03)
[2023-01-16] MEDS: HYDROcodone-ACET 5/325MG TAB PO PRN ×2 (10:33→17:02)
[2023-01-16] MEDS: CHOLECALCIFEROL (VITD3) 2,000 UNIT CAP/TAB PO SCH (10:33)
[2023-01-16] MEDS: POTASSIUM CHLORIDE 8 MEQ TAB PO SCH (10:33)
[2023-01-16] MEDS: NICOTINE 14 MG/24HR TOPICAL PATCH TD SCH (10:34)
[2023-01-16] MEDS: PANTOPRAZOLE 40 MG/10 ML VIAL INJ IV SCH (10:38)
[2023-01-16] MEDS: SACUBITRIL-VALSARTAN 24mg/26mg TAB PO SCH ×2 (10:50→22:00)
[2023-01-16] MEDS ORDERED: HEPARIN DRIP/D5W 100UNITS/ML 250 ML IV SCH (11:56)
[2023-01-16 13:00] VITALS: BP 100/67
[2023-01-16 16:52] VITALS: BP 93/56
[2023-01-16] MEDS ORDERED: WARFARIN SODIUM 2.5 MG TAB PO ONE (17:00)
[2023-01-16 18:27] LABS: INR 1.07 (0.9-1.15); Partial Thromboplastin Time 60.9 sec (24.6-33.4)
[2023-01-16 22:00] VITALS: BP 98/64
[2023-01-16] MEDS: ATORVASTATIN 20 MG TAB PO SCH (22:04)
[2023-01-17] MEDS: ALBUTEROL SULF 2.5 MG/0.5ML(0.5%) NEB SOLN NEB SCH ×4 (00:26→19:20)
[2023-01-17] MEDS: IPRATROPIUM BROM 0.5 MG/2.5ML INH SOL NEB SCH ×4 (00:26→19:20)
[2023-01-17 01:00] LABS: INR 1.08 (0.9-1.15); Partial Thromboplastin Time 59.2 sec (24.6-33.4)
[2023-01-17 05:00] VITALS: BP 100/72
[2023-01-17 05:55] LABS: Basophils # (auto) 0.1 10 ^3/uL (0-0.2); Basophils % (auto) 0.9 % (0.0-2.0); Eosinophils # (auto) 0.3 10 ^3/uL (0-0.8); Hematocrit 40.7 % (41.0-53.0); Hemoglobin 13.7 g/dL (13.5-17.5); Lymphocytes # (auto) 2.3 10 ^3/uL (0.4-5.4); Lymphocytes % (auto) 41.3 % (10.0-50.0); Mean Corpuscular Hemoglobin 33.5 pg (28.0-32.0); Mean Corpuscular Hgb Conc. 33.6 g/dL (32.0-36.0); Mean Corpuscular Volume 99.9 fL (80.0-100.0); Monocytes # (auto) 0.5 10 ^3/uL (0-1.3); Monocytes % (auto) 9.1 % (0.0-12.0); Neutrophils # (auto) 2.3 10 ^3/uL (1.6-8.6); Neutrophils % (auto) 42.7 % (37.0-80.0); Red Blood Cells 4.07 10^6/uL (4.5-5.90); Red Cell Distribution Width 13.7 % (11.8-14.3); White Blood Cell 5.5 10^3/uL (4.4-10.8)
[2023-01-17 06:05] LABS: Potassium 4.2 mmol/L (3.5-5.1)
[2023-01-17] MEDS: MORPHINE SULFATE INJ 2 MG/ml SYRG IV PRN ×2 (06:10→19:47)
[2023-01-17 06:15] LABS: INR 1.04 (0.9-1.15)
[2023-01-17 06:18] LABS: BUN/Creatinine Ratio 23.2 (10.0-20.0); Calcium 8.2 mg/dL (8.5-10.1); Magnesium 2.1 mg/dL (1.6-2.6)
[2023-01-17 06:21] LABS: Partial Thromboplastin Time 77.7 sec (24.6-33.4)
[2023-01-17] MEDS ORDERED: HEPARIN DRIP/D5W 100UNITS/ML 250 ML IV SCH ×2 (08:30→14:15)
[2023-01-17 09:00] VITALS: BP 95/68
[2023-01-17] MEDS: CHOLECALCIFEROL (VITD3) 2,000 UNIT CAP/TAB PO SCH (10:32)
[2023-01-17] MEDS: POTASSIUM CHLORIDE 8 MEQ TAB PO SCH (10:32)
[2023-01-17] MEDS: SACUBITRIL-VALSARTAN 24mg/26mg TAB PO SCH ×2 (10:32→21:00)
[2023-01-17] MEDS: FUROSEMIDE 40 MG/4 ML VIAL IV SCH (10:33)
[2023-01-17] MEDS: PANTOPRAZOLE 40 MG/10 ML VIAL INJ IV SCH (10:33)
[2023-01-17] MEDS: ASPirin 81 mg TAB PO SCH (10:33)
[2023-01-17] MEDS: DOCUSATE SOD 100 MG CAP PO SCH ×2 (10:33→20:57)
[2023-01-17] MEDS: NICOTINE 14 MG/24HR TOPICAL PATCH TD SCH (10:34)
[2023-01-17] MEDS: CARVEDILOL 3.125 MG TAB PO SCH ×2 (10:34→20:59)
[2023-01-17 13:00] VITALS: BP 92/64
[2023-01-17] MEDS: HYDROcodone-ACET 5/325MG TAB PO PRN ×2 (13:13→22:40)
[2023-01-17 13:38] LABS: INR 1.03 (0.9-1.15); Partial Thromboplastin Time 40.2 sec (24.6-33.4)
[2023-01-17 17:00] VITALS: BP 100/74
[2023-01-17] MEDS ORDERED: WARFARIN SODIUM 5 MG TAB PO ONE (17:00)
[2023-01-17 20:41] LABS: INR 1.07 (0.9-1.15); Partial Thromboplastin Time 56.4 sec (24.6-33.4)
[2023-01-17] MEDS: ATORVASTATIN 20 MG TAB PO SCH (20:58)
[2023-01-17 22:00] VITALS: BP 103/64
[2023-01-17 22:05] VITALS: BP 89/64
[2023-01-18] MEDS: HYDROcodone-ACET 5/325MG TAB PO PRN ×5 (00:24→22:56)
[2023-01-18] MEDS: ALBUTEROL SULF 2.5 MG/0.5ML(0.5%) NEB SOLN NEB SCH ×5 (00:25→23:11)
[2023-01-18] MEDS: IPRATROPIUM BROM 0.5 MG/2.5ML INH SOL NEB SCH ×5 (00:25→23:11)
[2023-01-18] MEDS: MORPHINE SULFATE INJ 2 MG/ml SYRG IV PRN (00:31)
[2023-01-18] MEDS: ONDANSETRON HCL 4 MG/2 ML VIAL IV PRN ×2 (00:43→16:04)
[2023-01-18 03:45] LABS: INR 1.13 (0.9-1.15)
[2023-01-18 05:00] VITALS: BP 96/62
[2023-01-18 08:26] LABS: INR 1.14 (0.9-1.15)
[2023-01-18 08:49] LABS: Partial Thromboplastin Time 82.9 sec (24.6-33.4)
[2023-01-18 09:00] VITALS: BP 101/63
[2023-01-18] MEDS ORDERED: HEPARIN DRIP/D5W 100UNITS/ML 250 ML IV SCH ×2 (09:15→18:00)
[2023-01-18] MEDS: DOCUSATE SOD 100 MG CAP PO SCH ×2 (10:55→21:03)
[2023-01-18] MEDS: ASPirin 81 mg TAB PO SCH (10:55)
[2023-01-18] MEDS: PANTOPRAZOLE 40 MG/10 ML VIAL INJ IV SCH (10:55)
[2023-01-18] MEDS: POTASSIUM CHLORIDE 8 MEQ TAB PO SCH (10:56)
[2023-01-18] MEDS: NICOTINE 14 MG/24HR TOPICAL PATCH TD SCH (10:56)
[2023-01-18] MEDS: CHOLECALCIFEROL (VITD3) 2,000 UNIT CAP/TAB PO SCH (10:56)
[2023-01-18] MEDS: FUROSEMIDE 40 MG/4 ML VIAL IV SCH (10:56)
[2023-01-18] MEDS: CARVEDILOL 3.125 MG TAB PO SCH ×2 (10:57→21:03)
[2023-01-18] MEDS: SACUBITRIL-VALSARTAN 24mg/26mg TAB PO SCH ×2 (11:22→21:02)
[2023-01-18 13:00] VITALS: BP 104/51
[2023-01-18 17:00] VITALS: BP 103/70
[2023-01-18] MEDS ORDERED: WARFARIN SODIUM 5 MG TAB PO ONE (17:00)
[2023-01-18 17:16] LABS: INR 1.24 (0.9-1.15); Partial Thromboplastin Time 48.1 sec (24.6-33.4)
[2023-01-18] MEDS ORDERED: LACTULOSE 20Gm/30ML SOLN PO ONE (17:45)
[2023-01-18] MEDS: LACTULOSE 20Gm/30ML SOLN PO SCH (21:02)
[2023-01-18] MEDS: ATORVASTATIN 20 MG TAB PO SCH (21:03)
[2023-01-18 22:00] VITALS: BP 103/67
[2023-01-19 00:14] LABS: INR 1.38 (0.9-1.15); Partial Thromboplastin Time 53.8 sec (24.6-33.4)
[2023-01-19] MEDS: HYDROcodone-ACET 5/325MG TAB PO PRN ×3 (03:32→14:52)
[2023-01-19 05:00] VITALS: BP 105/65
[2023-01-19] MEDS: ALBUTEROL SULF 2.5 MG/0.5ML(0.5%) NEB SOLN NEB SCH ×3 (06:13→18:41)
[2023-01-19] MEDS: IPRATROPIUM BROM 0.5 MG/2.5ML INH SOL NEB SCH ×3 (06:13→18:41)
[2023-01-19 06:28] LABS: Basophils # (auto) 0.1 10 ^3/uL (0-0.2); Basophils % (auto) 1.3 % (0.0-2.0); Eosinophils # (auto) 0.3 10 ^3/uL (0-0.8); Eosinophils % (auto) 5.2 % (0.0-7.0); Hematocrit 40.6 % (41.0-53.0); Hemoglobin 13.3 g/dL (13.5-17.5); Lymphocytes # (auto) 1.2 10 ^3/uL (0.4-5.4); Lymphocytes % (auto) 24.7 % (10.0-50.0); Mean Corpuscular Hemoglobin 32.8 pg (28.0-32.0); Mean Corpuscular Hgb Conc. 32.8 g/dL (32.0-36.0); Mean Corpuscular Volume 99.7 fL (80.0-100.0); Monocytes # (auto) 0.5 10 ^3/uL (0-1.3); Monocytes % (auto) 9.2 % (0.0-12.0); Neutrophils % (auto) 59.6 % (37.0-80.0); Nucleated Red Blood Cells % 0.2 %; Red Blood Cells 4.07 10^6/uL (4.5-5.90); Red Cell Distribution Width 13.3 % (11.8-14.3)
[2023-01-19 06:45] LABS: INR 1.62 (0.9-1.15)
[2023-01-19 07:29] LABS: INR 1.64 (0.9-1.15)
[2023-01-19 08:00] VITALS: BP 90/50
[2023-01-19 09:00] VITALS: BP 90/53
[2023-01-19] MEDS: POTASSIUM CHLORIDE 8 MEQ TAB PO SCH (09:08)
[2023-01-19] MEDS: ASPirin 81 mg TAB PO SCH (09:08)
[2023-01-19] MEDS: NICOTINE 14 MG/24HR TOPICAL PATCH TD SCH (09:10)
[2023-01-19] MEDS ORDERED: HEPARIN DRIP/D5W 100UNITS/ML 250 ML IV SCH ×2 (09:45→17:15)
[2023-01-19] MEDS: LACTULOSE 20Gm/30ML SOLN PO SCH (10:00)
[2023-01-19] MEDS: FUROSEMIDE 40 MG/4 ML VIAL IV SCH (10:00)
[2023-01-19] MEDS: CARVEDILOL 3.125 MG TAB PO SCH (10:00)
[2023-01-19] MEDS: DOCUSATE SOD 100 MG CAP PO SCH (10:00)
[2023-01-19] MEDS: SACUBITRIL-VALSARTAN 24mg/26mg TAB PO SCH (10:00)
[2023-01-19] MEDS: PANTOPRAZOLE 40 MG/10 ML VIAL INJ IV SCH (10:08)
[2023-01-19] MEDS: CHOLECALCIFEROL (VITD3) 2,000 UNIT CAP/TAB PO SCH (10:22)
[2023-01-19 13:00] VITALS: BP 101/62
[2023-01-19 16:44] LABS: INR 2.06 (0.9-1.15)
[2023-01-19 17:00] VITALS: BP 105/70
[2023-01-19] MEDS ORDERED: WARFARIN SODIUM 5 MG TAB PO ONE (17:00)
[2023-01-19 17:05] LABS: Partial Thromboplastin Time 103.2 sec (24.6-33.4)
[2023-01-19 18:03] VITALS: BP 105/70
== END 2023-01-19 20:00 | DRG 175 ==
LOC: EDBD 14:17 → ER 14:17 → TELE 21:45 → TELE-WESTW 01-15 17:11
PROVIDERS: ADMIT Registered Nurse; ATTEND Internal Medicine
DX: I26.99 Other pulmonary embolism without acute cor pulmonale (principal); J96.00 Acute respiratory failure, unspecified whether with hypoxia or hypercapnia; E87.20 Acidosis, unspecified; I42.8 Other cardiomyopathies; I50.22 Chronic systolic (congestive) heart failure; I11.0 Hypertensive heart disease with heart failure; I27.82 Chronic pulmonary embolism; E55.9 Vitamin D deficiency, unspecified; E78.5 Hyperlipidemia, unspecified; J43.9 Emphysema, unspecified; K59.00 Constipation, unspecified; R79.89 Other specified abnormal findings of blood chemistry; F17.210 Nicotine dependence, cigarettes, uncomplicated; Z20.822 Contact with and (suspected) exposure to COVID-19; Z71.6 Tobacco abuse counseling
CPT/HCPCS: 36415; 36600; 71045; 71275; 80048; 80053; 80307; 81001; 82105; 82306; 82378; 82553; 82805; 82977; 83036; 83605; 83735; 83880; 84154; 84443; 84484; 85025; 85379; 85610; 85730; 86301; 87040; 87086; 87426; 93005; 93306; 93970; 94640; 96365; 96366; 96367; 96368; 96372; 96375; 96376; C9113; G0378; J0696; J1100; J2405

== ENCOUNTER 2023-02-26 14:20 | Inpatient (IN) | payer OTHER ==
[~2023-02-26] VITALS: Ht 172.7 cm; Wt 50.0 kg
[~2023-02-26 14:20] MED LIST changes: -ALBU1.257 IN; +ALBU1.258 IN
[2023-02-26] MEDS ORDERED: ALBUTEROL SULF 2.5 MG/0.5ML(0.5%) NEB SOLN NEB ONE (14:45)
[2023-02-26] MEDS ORDERED: DexAMETHasone INJECTION 10 MG in D5W 5% 50 ML IV ONE (14:45)
[2023-02-26] MEDS ORDERED: IPRATROPIUM BROM 0.5 MG/2.5ML INH SOL NEB ONE (14:45)
[2023-02-26 15:01] LABS: Basophils # (auto) 0 10 ^3/uL (0-0.2); Basophils % (auto) 0.7 % (0.0-2.0); Eosinophils # (auto) 0 10 ^3/uL (0-0.8); Eosinophils % (auto) 1.3 % (0.0-7.0); Hematocrit 42.2 % (41.0-53.0); Hemoglobin 13.9 g/dL (13.5-17.5); Lymphocytes # (auto) 0.9 10 ^3/uL (0.4-5.4); Lymphocytes % (auto) 26.6 % (10.0-50.0); Mean Corpuscular Hemoglobin 31.6 pg (28.0-32.0); Mean Corpuscular Hgb Conc. 32.8 g/dL (32.0-36.0); Mean Corpuscular Volume 96.2 fL (80.0-100.0); Monocytes # (auto) 0.3 10 ^3/uL (0-1.3); Monocytes % (auto) 9.6 % (0.0-12.0); Neutrophils # (auto) 2.2 10 ^3/uL (1.6-8.6); Neutrophils % (auto) 61.8 % (37.0-80.0); Nucleated Red Blood Cells % 0.3 %; Red Blood Cells 4.39 10^6/uL (4.5-5.90); Red Cell Distribution Width 14.1 % (11.8-14.3); White Blood Cell 3.5 10^3/uL (4.4-10.8)
[2023-02-26 15:21] LABS: Albumin 3.5 g/dL (3.4-5.0); Calcium 8.1 mg/dL (8.5-10.1); Potassium 3.7 mmol/L (3.5-5.1)
[2023-02-26 15:24] LABS: INR 1.04 (0.9-1.15); Partial Thromboplastin Time 26.2 SEC (24.5-34.5)
[2023-02-26 15:25] LABS: Bilirubin, Total 0.4 mg/dL (0.2-1.0); Total Protein 6.5 g/dL (6.4-8.2)
[2023-02-26] MEDS ORDERED: DexAMETHasone SOD PHOS 10MG/1ML VIAL INJ IV ONE (15:30)
[2023-02-26] MEDS ORDERED: ALBUTEROL SULF 2.5 MG/0.5ML(0.5%) NEB SOLN NEB PRN (21:15)
[2023-02-26] MEDS ORDERED: ACETAMINOPHEN 325 MG TAB PO PRN (21:15)
[2023-02-26 21:39] VITALS: BP 100/89
[2023-02-26] MEDS: SACUBITRIL-VALSARTAN 24mg/26mg TAB PO SCH (22:00)
[2023-02-26] MEDS: ALBUTEROL SULF 2.5 MG/0.5ML(0.5%) NEB SOLN NEB SCH (22:33)
[2023-02-26] MEDS: IPRATROPIUM BROM 0.5 MG/2.5ML INH SOL NEB SCH (22:33)
[2023-02-26] MEDS: APIXABAN 5 MG TAB PO SCH (22:34)
[2023-02-26] MEDS: CARVEDILOL 3.125 MG TAB PO SCH (22:34)
[2023-02-26 22:55] LABS: Urine Bacteria NONE SEEN /hpf (None Seen); Urine Blood Negative /uL (Negative); Urine Hyaline Cast FEW /lpf (0 - 2); Urine Specific Gravity 1.023 (1.001-1.035); Urine WBC <1 /hpf (0 - 3)
[2023-02-26] MEDS ORDERED: MORPHINE SULFATE INJ 2 MG/ml SYRG IV ONE (23:45)
[2023-02-27] MEDS ORDERED: ONDANSETRON HCL 4 MG/2 ML VIAL IV ONE
[2023-02-27] MEDS: IPRATROPIUM BROM 0.5 MG/2.5ML INH SOL NEB SCH ×6 (01:40→22:02)
[2023-02-27] MEDS: ALBUTEROL SULF 2.5 MG/0.5ML(0.5%) NEB SOLN NEB SCH ×6 (01:40→22:02)
[2023-02-27] MEDS ORDERED: MELATONIN 5 MG TAB PO ONE (02:00)
[2023-02-27] MEDS ORDERED: MORPHINE SULFATE 4 MG/ML SYR/VIAL IV PRN (06:30)
[2023-02-27 06:31] LABS: Basophils # (auto) 0 10 ^3/uL (0-0.2); Basophils % (auto) 0.2 % (0.0-2.0); Eosinophils # (auto) 0 10 ^3/uL (0-0.8); Hematocrit 35.7 % (41.0-53.0); Hemoglobin 12.1 g/dL (13.5-17.5); Lymphocytes # (auto) 0.6 10 ^3/uL (0.4-5.4); Lymphocytes % (auto) 13.6 % (10.0-50.0); Mean Corpuscular Hemoglobin 32.4 pg (28.0-32.0); Mean Corpuscular Hgb Conc. 33.8 g/dL (32.0-36.0); Mean Corpuscular Volume 95.7 fL (80.0-100.0); Monocytes # (auto) 0.6 10 ^3/uL (0-1.3); Neutrophils # (auto) 3.3 10 ^3/uL (1.6-8.6); Neutrophils % (auto) 73.2 % (37.0-80.0); Nucleated Red Blood Cells % 0.2 %; Red Blood Cells 3.73 10^6/uL (4.5-5.90); Red Cell Distribution Width 13.8 % (11.8-14.3); White Blood Cell 4.5 10^3/uL (4.4-10.8)
[2023-02-27 06:43] LABS: Albumin 3.3 g/dL (3.4-5.0); BUN/Creatinine Ratio 21.2 (10.0-20.0); Bilirubin, Total 0.7 mg/dL (0.2-1.0); Calcium 8.5 mg/dL (8.5-10.1); Potassium 4.5 mmol/L (3.5-5.1); Total Protein 6.2 g/dL (6.4-8.2)
[2023-02-27] MEDS ORDERED: MORPHINE SULFATE INJ 2 MG/ml SYRG IV PRN (06:45)
[2023-02-27] MEDS: APIXABAN 5 MG TAB PO SCH ×2 (08:05→22:20)
[2023-02-27] MEDS: SACUBITRIL-VALSARTAN 24mg/26mg TAB PO SCH ×2 (08:05→22:21)
[2023-02-27] MEDS: CARVEDILOL 3.125 MG TAB PO SCH ×2 (08:06→21:20)
[2023-02-27] MEDS: CHOLECALCIFEROL (VITD3) 1,000UNIT=25mCg TAB PO SCH (08:06)
[2023-02-27 10:03] VITALS: BP 99/65
[2023-02-27] MEDS: HYDROcodone-ACET 5/325MG TAB PO PRN ×4 (12:39→22:21)
[2023-02-27 13:00] VITALS: BP 106/78
[2023-02-27] MEDS ORDERED: IOHEXOL 350 MG/ML 100ML IJ ONE (14:43)
[2023-02-27 17:00] VITALS: BP 105/64
[2023-02-27 18:46] VITALS: BP 105/64
[2023-02-27 20:00] VITALS: BP 86/54
[2023-02-27 22:00] VITALS: BP 86/54
[2023-02-28] MEDS: IPRATROPIUM BROM 0.5 MG/2.5ML INH SOL NEB SCH ×6 (02:03→21:31)
[2023-02-28] MEDS: ALBUTEROL SULF 2.5 MG/0.5ML(0.5%) NEB SOLN NEB SCH ×6 (02:03→21:31)
[2023-02-28] MEDS: HYDROcodone-ACET 5/325MG TAB PO PRN ×5 (02:36→22:06)
[2023-02-28 05:14] VITALS: BP 98/65
[2023-02-28 08:00] VITALS: BP 103/61
[2023-02-28 09:00] VITALS: BP 103/61
[2023-02-28] MEDS: CARVEDILOL 3.125 MG TAB PO SCH ×2 (10:00→22:00)
[2023-02-28] MEDS: SACUBITRIL-VALSARTAN 24mg/26mg TAB PO SCH ×2 (10:11→22:00)
[2023-02-28] MEDS: CHOLECALCIFEROL (VITD3) 1,000UNIT=25mCg TAB PO SCH (10:11)
[2023-02-28] MEDS: APIXABAN 5 MG TAB PO SCH ×2 (10:11→22:09)
[2023-02-28 11:00] VITALS: BP 106/69
[2023-02-28] MEDS ORDERED: LACTULOSE 20Gm/30ML SOLN PO ONE (11:00)
[2023-02-28] MEDS ORDERED: IOHEXOL 350 MG/ML 100ML IJ ONE (11:21)
[2023-02-28] MEDS ORDERED: NICOTINE 14 MG/24HR TOPICAL PATCH TD ONE (11:30)
[2023-02-28 16:43] VITALS: BP 108/72
[2023-02-28 22:00] VITALS: BP 92/56
[2023-03-01] MEDS: ALBUTEROL SULF 2.5 MG/0.5ML(0.5%) NEB SOLN NEB SCH ×6 (01:57→22:41)
[2023-03-01] MEDS: IPRATROPIUM BROM 0.5 MG/2.5ML INH SOL NEB SCH ×6 (01:57→22:42)
[2023-03-01] MEDS: HYDROcodone-ACET 5/325MG TAB PO PRN ×4 (03:04→19:52)
[2023-03-01 05:00] VITALS: BP 98/64
[2023-03-01 08:00] VITALS: BP 94/60
[2023-03-01] MEDS: CHOLECALCIFEROL (VITD3) 1,000UNIT=25mCg TAB PO SCH (09:55)
[2023-03-01] MEDS: SACUBITRIL-VALSARTAN 24mg/26mg TAB PO SCH ×2 (09:55→21:56)
[2023-03-01] MEDS: APIXABAN 5 MG TAB PO SCH ×2 (09:55→21:56)
[2023-03-01] MEDS: CARVEDILOL 3.125 MG TAB PO SCH (09:58)
[2023-03-01] MEDS: LACTULOSE 20Gm/30ML SOLN PO SCH (10:00)
[2023-03-01] MEDS: NICOTINE 14 MG/24HR TOPICAL PATCH TD SCH (10:03)
[2023-03-01 12:00] VITALS: BP 111/58
[2023-03-01 16:00] VITALS: BP 97/50
[2023-03-01 21:38] VITALS: BP 97/50
[2023-03-01 22:00] VITALS: BP 91/62
[2023-03-01] MEDS ORDERED: MELATONIN 5 MG TAB PO ONE (22:00)
[2023-03-02] MEDS: HYDROcodone-ACET 5/325MG TAB PO PRN ×5 (00:18→22:20)
[2023-03-02] MEDS: ALBUTEROL SULF 2.5 MG/0.5ML(0.5%) NEB SOLN NEB SCH ×7 (02:00→21:36)
[2023-03-02] MEDS: IPRATROPIUM BROM 0.5 MG/2.5ML INH SOL NEB SCH ×7 (02:00→21:36)
[2023-03-02 05:00] VITALS: BP 102/63
[2023-03-02 08:00] VITALS: BP 110/69
[2023-03-02 08:30] VITALS: BP 110/70
[2023-03-02] MEDS: SACUBITRIL-VALSARTAN 24mg/26mg TAB PO SCH ×2 (09:16→22:18)
[2023-03-02] MEDS: CHOLECALCIFEROL (VITD3) 1,000UNIT=25mCg TAB PO SCH (09:17)
[2023-03-02] MEDS: APIXABAN 5 MG TAB PO SCH ×2 (09:17→22:18)
[2023-03-02] MEDS: LACTULOSE 20Gm/30ML SOLN PO SCH (09:18)
[2023-03-02] MEDS: NICOTINE 14 MG/24HR TOPICAL PATCH TD SCH (09:18)
[2023-03-02 09:42] LABS: Hepatitis A Ab IgM Negative
[2023-03-02 09:43] LABS: Hepatitis B Core IgM Negative; Hepatitis C Antibody Negative (Negative)
[2023-03-02 13:00] VITALS: BP 114/73
[2023-03-02 16:56] VITALS: BP 123/84
[2023-03-02 22:00] VITALS: BP 98/64
[2023-03-02] MEDS ORDERED: MELATONIN 5 MG TAB PO ONE (22:00)
[2023-03-02] MEDS ORDERED: SODIUM BICARBONATE 8.4% INJ 50ML SYRINGE ONE (23:06)
[2023-03-03] MEDS: ALBUTEROL SULF 2.5 MG/0.5ML(0.5%) NEB SOLN NEB SCH ×6 (02:00→22:09)
[2023-03-03] MEDS: IPRATROPIUM BROM 0.5 MG/2.5ML INH SOL NEB SCH ×6 (02:00→22:09)
[2023-03-03] MEDS: HYDROcodone-ACET 5/325MG TAB PO PRN ×4 (02:40→20:21)
[2023-03-03 05:00] VITALS: BP 106/73
[2023-03-03 08:00] VITALS: BP 117/79
[2023-03-03] MEDS: APIXABAN 5 MG TAB PO SCH ×2 (08:43→22:26)
[2023-03-03] MEDS: SACUBITRIL-VALSARTAN 24mg/26mg TAB PO SCH ×2 (08:43→22:26)
[2023-03-03] MEDS: CHOLECALCIFEROL (VITD3) 1,000UNIT=25mCg TAB PO SCH (08:44)
[2023-03-03] MEDS: NICOTINE 14 MG/24HR TOPICAL PATCH TD SCH (08:45)
[2023-03-03 09:00] VITALS: BP 117/79
[2023-03-03] MEDS: LACTULOSE 20Gm/30ML SOLN PO SCH (09:36)
[2023-03-03 13:00] VITALS: BP 107/72
[2023-03-03 16:55] VITALS: BP 113/74
[2023-03-03 21:59] VITALS: BP 111/71
[2023-03-03] MEDS ORDERED: MELATONIN 5 MG TAB PO ONE (22:10)
[2023-03-04] MEDS: HYDROcodone-ACET 5/325MG TAB PO PRN ×5 (00:26→22:03)
[2023-03-04] MEDS: ALBUTEROL SULF 2.5 MG/0.5ML(0.5%) NEB SOLN NEB SCH ×5 (02:00→18:46)
[2023-03-04] MEDS: IPRATROPIUM BROM 0.5 MG/2.5ML INH SOL NEB SCH ×5 (02:00→18:46)
[2023-03-04 05:00] VITALS: BP 106/68
[2023-03-04] MEDS: SACUBITRIL-VALSARTAN 24mg/26mg TAB PO SCH ×2 (08:54→21:57)
[2023-03-04] MEDS: CHOLECALCIFEROL (VITD3) 1,000UNIT=25mCg TAB PO SCH (08:54)
[2023-03-04] MEDS: NICOTINE 14 MG/24HR TOPICAL PATCH TD SCH (08:54)
[2023-03-04] MEDS: LACTULOSE 20Gm/30ML SOLN PO SCH (08:56)
[2023-03-04 09:00] VITALS: BP 110/82
[2023-03-04 11:05] LABS: Urine Bacteria NONE SEEN /hpf (None Seen); Urine Blood Negative /uL (Negative); Urine Specific Gravity 1.006 (1.001-1.035); Urine WBC <1 /hpf (0 - 3)
[2023-03-04] MEDS: APIXABAN 5 MG TAB PO SCH ×2 (11:16→21:57)
[2023-03-04 13:00] VITALS: BP 107/61
[2023-03-04 16:41] VITALS: BP 121/77
[2023-03-04] MEDS ORDERED: IPRATROPIUM BROM 0.5 MG/2.5ML INH SOL NEB SCH (21:30)
[2023-03-04] MEDS ORDERED: ALBUTEROL SULF 2.5 MG/0.5ML(0.5%) NEB SOLN NEB SCH (21:30)
[2023-03-04 22:00] VITALS: BP 109/77
[2023-03-04] MEDS ORDERED: MELATONIN 5 MG TAB PO ONE (22:00)
[2023-03-05 03:13] VITALS: BP 109/77
[2023-03-05 05:00] VITALS: BP 103/68
[2023-03-05] MEDS: HYDROcodone-ACET 5/325MG TAB PO PRN ×2 (05:26→10:58)
[2023-03-05] MEDS: ALBUTEROL SULF 2.5 MG/0.5ML(0.5%) NEB SOLN NEB SCH ×2 (06:45→12:59)
[2023-03-05] MEDS: IPRATROPIUM BROM 0.5 MG/2.5ML INH SOL NEB SCH ×2 (06:45→12:59)
[2023-03-05 09:00] VITALS: BP 93/58
[2023-03-05] MEDS: SACUBITRIL-VALSARTAN 24mg/26mg TAB PO SCH (09:11)
[2023-03-05] MEDS: APIXABAN 5 MG TAB PO SCH (09:11)
[2023-03-05] MEDS: NICOTINE 14 MG/24HR TOPICAL PATCH TD SCH (09:11)
[2023-03-05] MEDS: LACTULOSE 20Gm/30ML SOLN PO SCH (09:12)
[2023-03-05] MEDS: CHOLECALCIFEROL (VITD3) 1,000UNIT=25mCg TAB PO SCH (09:12)
[2023-03-05] MEDS ORDERED: SACU1TAB PO (11:38)
[2023-03-05] MEDS ORDERED: HYDR-4902 PO (11:38)
[2023-03-05] MEDS ORDERED: APIX5TAB PO (11:38)
[2023-03-05] MEDS ORDERED: NIC21P TOP (11:38)
[2023-03-05 13:21] VITALS: BP 101/67
== END 2023-03-05 17:23 | disposition home or self-care (01) | DRG 190 ==
LOC: EDBD 14:20 → ER 14:20 → TELE 21:07 → TELE-WESTW 02-27 10:33
PROVIDERS: ADMIT Nurse Practitioner Family; ATTEND Family Medicine
DX: J43.9 Emphysema, unspecified (principal); I50.23 Acute on chronic systolic (congestive) heart failure; I42.8 Other cardiomyopathies; R64 Cachexia; N17.9 Acute kidney failure, unspecified; Z68.1 Body mass index [BMI] 19.9 or less, adult; R73.9 Hyperglycemia, unspecified; N18.31 Chronic kidney disease, stage 3a; E83.51 Hypocalcemia; F17.200 Nicotine dependence, unspecified, uncomplicated; Z86.711 Personal history of pulmonary embolism; Z91.199 Patient's noncompliance with other medical treatment and regimen due to unspecified reason; Z71.6 Tobacco abuse counseling; R63.6 Underweight
CPT/HCPCS: 36415; 71045; 71275; 76705; 78582; 80053; 80074; 81001; 83036; 83735; 83880; 84484; 85025; 85379; 85610; 85730; 93005; 94640; 96374; 96375; G0378; J1100; J2405; J7060